=== PATIENT | male | born 1940 | race Caucasian/White ===

== ENCOUNTER 2019-10-16 22:08 | Inpatient (IN) | payer MEDICARE ==
[~2019-10-16] VITALS: Ht 185.4 cm; Wt 72.8 kg
[~2019-10-16 22:08] MED LIST: ASPIRIN325 MG PO; FISH OIL300 MG PO; ULTRAM 50MG50 MG PO
--- OUTSIDE RECORDS SUMMARY | 2019-10-16 22:10 | XMS REPORT ---
Author Author [facility] Address Unknown Phone Unavailable Care Team Providers Care Batter Depositor Name Role Phone Ashli BROOKS Unavailable Unavailable FCO VILLARREAL Unavailable Unavailable Problems This patient has no known problems. Allergies, Adverse Reactions, Alerts This patient has no known allergies or adverse reactions. Medications This patient has no known medications. Results Test Description Test Time Test Comments Text Results Atomic Results Result Comments CT HIP RIGHT WO 2019-08-13 12:24:00 [facility] [address] [place] [address] Patient Name: HARDEEP WRIGHT MR #: [id number] : 1940 Age/Sex: 78/M Req #: [id number] Adm Physician: Ordered by: TONYA BROOKS MD Report #: [id number] Location: CT Room/Bed: Procedure: [id number] CT/CT HIP RIGHT WO Exam Date: 08/13/19 Exam Time: 0940 REPORT STATUS: Signed EXAM: CT right hip without contrast INDICATION: Radiculopa thy. Right hip pain. Hip pain COMPARISON: August 10, 2019 TECHNIQUE: Right hip was scanned utilizing a multidetector helical scanner without administration of IV contrast. Coronal and sagittal reformations were obtained. Routine protocol was performed. IV CONTRAST: None ORAL CONTRAST: None COMPLICATIONS: None RADIATION DOSE: Total DLP: 222 mGy*cm Estimated effective dose: (DLP x 0.015 x size factor) mSv CTDIvol has been reviewed. It is below the limits set by the Radiation Protocol Committee (RPC). Dose modulation, iterative reconstruction, and/or weight based adjustment of the mA/kV was utilized to reduce the radiation dose to as low as reasonably achievable. FINDINGS: Healed right proximal femoral fracture deformity with intact right femoral gaetano and screw fixation hardware. The surgical hardware is intact without evidence of failure or loosening. No acute fracture, subluxation or avascular necrosis. Scattered degenerative change about the right hip and visualized pelvic osseous structures. No osseous erosion. Scattered vascular calcification. Mild diffuse muscle atrophy. Distended urinary bladder. Small nonspecific inguinal lymph nodes. No abnormal fluid collections. Impression: Healed right proximal femoral fracture deformity with intact right femoral gaetano and screw fixation hardware. The surgical hardware is intact without evidence of failure or loosening. No acute fracture, subluxation or avascular necrosis. Scattered degenerative nance ge about the right hip and visualized pelvic osseous structures. No osseous erosion. Signed by: Dr. Caroline Venegas M.D. on 08/13/2019 12:31 PM Dictated By: CAROLINE VENEGAS MD, MD [id number] Transcribed By: MACARIO on 08/13/19 1231 COPY TO: TONYA BROOKS MD CT LUMBAR SPINE WO 2019-08-13 11:38:00 [place] [address] Patient Name: HARDEEP WRIGHT MR #: [id number] : 1940 Age/Sex: 78/M Req #: [id number] Adm Physician: Ordered by: TONYA BROOKS MD Report #: [id number] Location: CT Room/Bed: Procedure: [id number] CT/CT LUMBAR SPINE WO Exam Date: 08/13/19 Exam Time: 0940 REPORT STATUS: Signed EXAMINATION: CT of the lumbar spine HISTORY: Low back p ain radiating to the right hip, radiculopathy COMPARISON: None available TECHNIQUE: Multidetector helical axial images were obtained without contrast from L1 to S1. The images were reconstructed using bone and soft tissue algorithms and were viewed in axial, sagittal, and coronal planes. Dose modulation, iterative reconstruction, and/or weight based adjustment of the mA/kV was utilized to reduce the radiation dose to as low as reasonably achievable. FINDINGS: Alignment: Normal alignment and lordosis. Vertebral bodies: Normal height and density. Paraspinal muscles: Atherosclerotic calcification of the abdominal aorta and iliac arteries. Mild atrophy of the paraspinal muscles. Intervertebral disks: L1- L2: Normal. L2-L3: Normal. L3-L4: Mild diffuse disc poles, ligamentum flavum thickening and facet arthrosis. Moderate spinal canal and mild foraminal stenoses. L4-L5: Asymmetric right disc bulge, ligamenta flava thickening and bilateral facet arthrosis. Severe canal stenosis. Moderate right and mild left foraminal stenoses. Small bone fragment adjacent to the posterior left facet joint may correspond to an osteophyte versus sequela from remote trauma. L5-S1: Minimal symmetric disc poles and mild facet arthrosis minimally on the right. No canal or foraminal stenoses. IMPRESSION: 1. No acute lumbar spine fractures or dislocations. 2. Moderate degenerative spinal canal and mild neural foraminal stenosis at L3-L4. 3. Severe degenerative spinal canal and moderate right foraminal stenosis at L4-L5. Attempts were made to informed about this findings as requested to the provided phone number at the time of this dictation on 08/13/2019 at 11:43 PM unsuccessfully, a message was left. Signed by: Dr. Piotr Mercedes M.D. on 08/13/2019 11:45 AM Dictated By: PIOTR MERCEDES MD [id number] Transcribed By: MACARIO on 08/13/19 1146 COPY TO: TONYA BROOKS MD HIP RIGHT 2-3 VW (+/- PELVIS) 2019-08-10 06:47:00 [facility] [place] [address] Patient Name: HARDEEP WRIGHT MR #: [id number] : 1940 Age/Sex: 78/M Req #: [id number] Adm Physician: Ordered by: FCO VILLARREAL DO Report #: [id number] Location: ER Room/Bed: Procedure: [id number] DX/HIP RIGHT 2-3 VW (+/- PELVIS) Exam Date: Exam Time: REPORT STATUS: Signed X-ray pelvis 1 view and right femur 2 views HISTORY: Pain. COMPARISON: None available. FINDINGS: Some of the osseous structures obscured by bowel content. Bones: Healed right proximal femoral fracture deformity in near-anatomic alignment with intact right femoral gaetano and screw fixation hardware, no evidence of hardware loosening or failure. Exuberant callus formation about the healed fracture. Joints: No dislocations. Degenerative changes in the spine hips and pelvis. Soft tissues: Vascular calcifications. IMPRESSION: No acute radiographic osseous abnormality. Degenerative changes in the spine hips and pelvis. Healed right proximal femoral fracture deformity with intact right femoral gaetano and screw fixation hardware, no evidence of hardware loosening or failure. Signed by: Danielito Farr DO on 08/10/2019 6:50 AM Dictated By: DANIELITO FARR DO 9 Transcribed By: MACARIO on 08/10/19649 COPY TO: FCO SANTO DO
[2019-10-16] MEDS ORDERED: ASPIRIN 81 MG CHEW TAB PO ONE (22:30)
[2019-10-16 23:08] LABS: BASOPHILS % 0.1 % (0.0-1.0); EOSINOPHILS # (AUTO) 0.1 (0.0-0.4); EOSINOPHILS % 0.6 % (0.0-6.0); LYMPHOCYTES # (AUTO) 2.4 (1.0-3.2); LYMPHOCYTES % 17.1 % (18.0-39.1); MEAN CORPUSCULAR HEMOGLOBIN 28.3 pg (28-32); MEAN CORPUSCULAR HGB CONC 30.7 g/dL (31-35); MEAN CORPUSCULAR VOLUME 92.1 fL (81-99); MONOCYTES # (AUTO) 0.8 (0.2-0.8); MONOCYTES % 5.6 % (4.4-11.3); NEUTROPHILS # (AUTO) 10.6 (2.1-6.9); NEUTROPHILS % 75.8 % (38.7-80.0); PLATELET COUNT 219 x10e3/uL (140-360); RED BLOOD COUNT 1.52 x10e6/uL (4.3-5.7); RED CELL DISTRIBUTION WIDTH 15.8 % (11.7-14.4)
[2019-10-16 23:10] LABS: INR 1.24; PARTIAL THROMBOPLASTIN TIME 23.5 seconds (23.8-35.5); PROTHROMBIN TIME 16.4 seconds (11.9-14.5)
--- NOTE | 2019-10-16 23:18 | NUR ---
ER MD AND PRIMARY NURSE NOTIFIED AND AWARE OF CRITICAL LAB VALUES, HGB 4.3 AND HCT 14.0.
[2019-10-16 23:19] LABS: ALBUMIN/GLOBULIN RATIO 1.3 (0.8-2.0); ANION GAP 10.8 mmol/L (8-16); CALCIUM 7.1 mg/dL (8.4-10.2); CREATININE, SERUM 1.22 mg/dL (0.72-1.25); HEMOGLOBIN 4.3 g/dL (14.0-18.0); POTASSIUM 4.8 mmol/L (3.5-5.1)
[2019-10-16 23:28] LABS: CREATINE KINASE MB 1.3 ng/mL (0-5.0)
[2019-10-16] MEDS ORDERED: SODIUM CHLORIDE 0.9% 250ML 250 ML IV ONE (23:30)
[2019-10-16 23:44] LABS: BACTERIA,URINE FEW /HPF; BILIRUBIN,URINE NEGATIVE (NEGATIVE); CLARITY,URINE CLEAR (CLEAR); COLOR,URINE YELLOW (YELLOW); KETONES,URINE NEGATIVE (NEGATIVE); LEUKOCYTE ESTERASE ,URINE NEGATIVE (NEGATIVE); NITRITE,URINE NEGATIVE (NEGATIVE); PROTEIN,URINE DIPSTICK NEGATIVE (NEGATIVE); URINE UROBILINOGEN 0.2 mg/dL (0.2 - 1); WBC,URINE (MAN) 0-5 /HPF (0-5)
[2019-10-16 23:45] LABS: EPITHELIAL CELLS,URINE RARE /LPF
[2019-10-17] VITALS (15 sets, daily range): BP systolic 67–156; BP diastolic 36–71
--- NOTE | 2019-10-17 00:07 | Diagnostic Imaging Report ---
EXAMINATION: Head CT without contrast. HISTORY:Altered mental status. COMPARISON:CT brain from 09/20/2016 and report of MRI brain from 09/20/2016. TECHNIQUE: Multidetector axial images were obtained from the foramen magnum to the vertex without contrast. The images were reconstructed using brain and bone algorithms. Thin section brain images were reformatted into coronal and sagittal planes. Dose modulation, iterative reconstruction, and/or weight based adjustment of the mA/kV was utilized to reduce the radiation dose to as low as reasonably achievable. Intravenous contrast: None IMAGE QUALITY: Suboptimal evaluation due to motion-related streak artifacts. FINDINGS: Skull/scalp: No lytic or blastic. lesions. No surgical changes. Parenchyma: Suboptimal evaluation due to motion artifacts, despite the limitation no gross acute hemorrhage, mass or acute major vascular territorial infarct. Nonspecific few, scattered supratentorial white matter hypodensity are likely related to small vessel ischemic changes. Chronic lacunar infarct in left collazo radiata. Arteries: No density suggestive of thrombosis. Mild atherosclerotic calcification in bilateral carotid siphon. Dural sinuses: No abnormal density suggestive of thrombosis. Ventricles: Marked ventriculomegaly disproportionate to the amount of cerebral volume loss, possibly represents normal pressure or chronic communicating type hydrocephalus. Extra-axial spaces: No abnormal density. Brain volume: Mild generalized cerebral, severe cerebellar and midbrain volume loss. Craniocervical junction: No mass, Chiari malformation, or basilar invagination. Sella: No mass. Paranasal/mastoid sinuses: Imaged portions unremarkable. IMPRESSION: Suboptimal evaluation due to motion artifacts, despite the limitation no gross acute intracranial abnormality. No significant change since CT head from 09/20/2016. Chronic findings: 1. Mild supratentorial white matter microvascular ischemic changes. 2. Mild generalized cerebral volume loss. Severe cerebellar and midbrain volume loss and can be seen in the setting of progressive supranuclear palsy. 3. Ventriculomegaly disproportionate to the amount of cerebral volume loss may represent normal pressure or chronic communicating type hydrocephalus. Signed by: Dr. Petra Sneed M.D. on 10/17/2019 12:03 AM
--- NOTE | 2019-10-17 00:11 | Diagnostic Imaging Report ---
EXAMINATION: CHEST SINGLE (PORTABLE) INDICATION: Altered mental status COMPARISON: Systems Integration Advisor view from CT on 08/13/2019 FINDINGS: TUBES and LINES: Left chest wall cardiac device with leads in the right atrium and right ventricle. LUNGS: Hyperinflated lungs. A 1.1 cm soft tissue dense nodule in the right lower lobe. PLEURA: No pleural effusion or pneumothorax. HEART AND MEDIASTINUM: The cardiomediastinal silhouette is within normal size limits. There are atherosclerotic calcifications within the aorta. BONES AND SOFT TISSUES: Degenerative changes in the spine and shoulders. Soft tissues are unremarkable. UPPER ABDOMEN: No free air under the diaphragm. IMPRESSION: Hyperinflated lungs can be seen with obstructive pulmonary disease. An indeterminate 1.1 cm nodule in the right lower lung can be further characterized with nonemergent chest CT. Signed by: Danielito Farr DO on 10/17/2019 12:07 AM
[2019-10-17] MEDS ORDERED: SODIUM CHLORIDE 0.9% 1000ML 1,000 ML IV ONE (01:15)
[2019-10-17] MEDS ORDERED: SODIUM CHLORIDE 0.9% 250ML 250 ML ONE ×2 (02:58→10:36)
--- NOTE | 2019-10-17 07:26 | History and Physical ---
HISTORY PRESENT ILLNESS: A 78-year-old gentleman with a history of hypertension, history of hyperlipidemia, history of pacemaker placement, history of PE, history of low back pain, was in usual state of health until about 2 days prior to admission. The patient's family did not hear from him and therefore send out discharge for him and looked for him. The patient was found at home doing well. He did have some symptoms of weakness and lethargy, which increased in intensity. The patient was brought to the emergency room yesterday and in the emergency room, the patient was noted to have seizure-like activities and also his hemoglobin was noted to be very low at 4.1. Transfusion ordered. The patient in the ICU, on telemetry monitoring. PAST MEDICAL HISTORY: History of femur surgery, history of tonsillectomy, history of esophageal surgery, history of nasal surgery. PAST SURGICAL HISTORY: The patient is additional history includes pacemaker placement in 2013. The patient also had cataract surgeries and gallbladder removal. ALLERGIES: NO DRUG ALLERGIES. MEDICATIONS: We have reported are nifedipine and lisinopril 20 mg at the last admission. SOCIAL HISTORY: The patient has a history of smoking in the past, which he stopped. The patient also has a history of alcohol abuse in the past. Currently, non alcoholic. FAMILY HISTORY: The patient has CVA, hypertension, and diabetes in the family. REVIEW OF SYSTEMS: It is hard to get a history from him, but on repeated questioning, no chest pain noted. Positive for some shortness of breath and also for extreme weakness and tiredness. PHYSICAL EXAMINATION: VITAL SIGNS: Temperature is 97.6, pulse of 92, blood pressure is 108/42. On arrival was 95/36, pulse oximetry of 99%, O2 at 2 L. HEENT: Normocephalic, atraumatic. The patient has pallor. CVS: S1 and S2. Tachy. ABDOMEN: Nontender and nondistended. EXTREMITIES: Decreased pulses in the lower extremity. Pedal pulses are very feeble. Femoral pulses positive. The patient's back with tenderness in the L4-L5 area. LUNGS: Decreased air entry. LABORATORY VALUES: [place] [address], hemoglobin 4.3, hematocrit 14.0, no left shift present. The patient's chemistry shows; sodium 137, potassium 4.8, BUN of 67, creatinine of 1.22, calcium of 7.1, total bilirubin 0.1. Coags are normal. INR is 1.24. Urine normal. Stool occult was positive. IMAGING STUDIES: Brain CT shows mild supratentorial white matter microvascular changes, mild generalized volume loss and ventriculomegaly disproportionate to the amount of cerebral volume loss may represent normal-pressure hydrocephalus. Chest x-ray shows hyperinflated lungs with obstructive pulmonary disease and also an indeterminate 1.1 cm nodule in the right lung can be further characterized for CT. ASSESSMENT: 1. Mr. Sylvain Dumas with symptomatic blood loss anemia. 2. Seizure-like activity. 3. History of CVA in the past. 4. History of pacemaker placement. 5. History of hypertension. 6. Chronic obstructive pulmonary disease. 7. History of alcohol abuse in the past. 8. Seizure-like activity. PLAN: Four units have been crossed and typed. We will blood and transfuse the patient. Continue monitoring his H and H. A consult with Dr. Jd Kendall has been done. He will need an EGD and endoscopy given the extent of anemia. Iron levels will be ordered. A drug screen panel will also be ordered. A consult with Dr. Lugo will be ordered and also MRI head cannot be done because of his pacemaker placement. Further recommendation per clinical course. We will continue to monitor the patient. 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 We will address this at a later date and also a nodule in the lung, which will be addressed at a later date. Further recommendation per clinical course. We will continue to monitor the patient. The patient will be kept in ICU until the H and H is stabilized and the patient feels better. MD RASHMI Ko/MODL /[id number]
[2019-10-17 07:28] LABS: AMPHETAMINES SCREEN,URINE NEGATIVE (NEGATIVE); BENZODIAZEPINES SCREEN,URINE POSITIVE (NEGATIVE); PHENCYCLIDINE SCREEN,URINE NEGATIVE (NEGATIVE)
--- NOTE | 2019-10-17 09:06 | Consultation ---
DATE OF CONSULTATION: Pulmonary Critical Care Consultation CHIEF COMPLAINT: Acute on chronic blood loss. HISTORY OF PRESENT ILLNESS: The patient is a 78-year-old man. He has a history of a pulmonary embolism as well as some prior cardiac disease. He did have a pacemaker placed in the past. He has had increased weakness and malaise over the past several days. He has not noticed any chest pain. He does not have fevers or difficulty breathing. When he arrived in the emergency department, he was found to have a hemoglobin of 4.1. He denies any abdominal pain. He denies any hematochezia or hematemesis. He denies any hematuria or any bleeding of any kind. PAST SURGICAL HISTORY: 1. Status post pacemaker. 2. Status post cholecystectomy. 3. Status post femur surgery. 4. History of esophageal surgery. PAST MEDICAL HISTORY: 1. 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 2. Hypertension. 3. Diabetes. 4. Prior neurological problems including possible cerebellar atrophy or normal-pressure hydrocephalus. 5. History of prior lacunar infarcts. SOCIAL HISTORY: The patient has a strong support from his family. He is not an active smoker, although he did smoke in the past. He does not use alcohol. FAMILY HISTORY: Family history is significant for hypertension, cerebrovascular disease, and diabetes. ALLERGIES: NO KNOWN DRUG ALLERGIES. REVIEW OF SYSTEMS: The patient does have some intermittent confusion. He has no fevers. He has no neck pain. He is not complaining of any chest pain. He does not complain of dyspnea or cough. He has no abdominal pain. He denies hematemesis or hematochezia. He does not complain of any focal neurological problems. PHYSICAL EXAMINATION: VITAL SIGNS: The patient is afebrile. The blood pressure is 123/60 and the saturation is 99% on 2 L. The pulse is 84. HEENT: Shows no facial swelling or erythema. LYMPHATIC: Shows no submandibular, cervical, or supraclavicular adenopathy. CARDIAC: Reveals a regular rate and rhythm with normal S1 and S2. LUNGS: Auscultation of lungs reveals clear breath sounds bilaterally. ABDOMEN: Soft and nontender. There is no rebound or guarding. EXTREMITIES: Show no leg edema or calf tenderness. There is no cyanosis or clubbing. SKIN: Shows no rashes. NEUROLOGIC: Difficult because the patient's incomplete effort, but no obvious focal abnormalities are apparent. LABORATORY DATA: White blood cell count is 14 and hemoglobin is 4.3. The platelet count is 219. BUN to creatinine ratio is 67 to 1.22 and the carbon dioxide is 20. Albumin is 2.0. RADIOGRAPHIC DATA: CT scan of the brain shows mild generalized cerebral volume loss with severe cerebellar and midbrain volume loss. He also has ventriculomegaly. Chest x-ray shows hyperinflated lungs as well as a 1.1 nodule in the right lower lobe of unclear etiology. IMPRESSION: 1. Acute on chronic blood loss of unclear etiology. 2. Solitary pulmonary nodule. 3. Degenerative neurological disease of unclear etiology. 4. Acute kidney injury. 5. Leukocytosis. 6. Hypoalbuminemia. 7. Moderate protein-calorie malnutrition. PLAN: 1. The patient is receiving packed red blood cells. 2. We are awaiting GI evaluation. 3. The patient has been pancultured. 4. Neurological evaluation for possible degenerative neurological disease. 5. CT scan of the chest to evaluate the pulmonary nodule when stable. Scottie Branham MD [facility]/MODL /[id number]
[2019-10-17] MEDS ORDERED: ZIPRASIDONE 20 MG VIAL IM ONE ×2 (09:30→14:30)
[2019-10-17 15:29] LABS: HEMOGLOBIN 6.4 g/dL (14.0-18.0)
[2019-10-17 15:30] LABS: HEMATOCRIT 19.8 % (38.2-49.6)
[2019-10-17] MEDS ORDERED: SODIUM CHLORIDE 0.9% 1000ML 1,000 ML ONE ×2 (15:57→19:21)
--- NOTE | 2019-10-17 16:00 | NUR ---
Dr Orlando in with patient. Ordered 1 liter bolus NS, done. Evaluated echo while in progress.
[2019-10-17 16:14] LABS: ALANINE AMINOTRANSFERASE 28 IU/L (0-55); ALBUMIN 1.8 g/dL (3.5-5.0); ALBUMIN/GLOBULIN RATIO 1.4 (0.8-2.0); ALKALINE PHOSPHATASE 40 IU/L (40-150); ANION GAP 8.9 mmol/L (8-16); BLOOD UREA NITROGEN 76 mg/dL (7-26); BUN/CREATININE RATIO 79 (6-25); CARBON DIOXIDE 19 mmol/L (22-29); CHLORIDE 116 mmol/L (98-107); CREATININE, SERUM 0.96 mg/dL (0.72-1.25); EST GLOMERULAR FILTRATION RATE > 60 ML/MIN (60-); GLUCOSE 153 mg/dL (74-118); SODIUM 138 mmol/L (136-145)
[2019-10-17 16:23] LABS: POTASSIUM 5.9 mmol/L (3.5-5.1)
[2019-10-17] MEDS ORDERED: HYDROCORTISONE SOD SUCCINATE 100 MG VIAL IV ONE (16:30)
[2019-10-17] MEDS ORDERED: VANCOMYCIN 1GM/NS 250 ML 250 ML IV ONE (16:30)
--- NOTE | 2019-10-17 17:00 | NUR ---
Have spoke with Dr Lugo who states he is not taking call for patients this week. Order received to consult Dr Jimenez. Spoke with Dr Jimenez who states he is not top inventory control executive for [employer]. Have notified Dr Escamilla and Dr Branham that no current neurology is available for patient.
[2019-10-17] MEDS ORDERED: SODIUM CHLORIDE 0.9% 250ML 250 ML IV ONE ×3 (17:30→20:00)
[2019-10-17] MEDS ORDERED: IOPAMIDOL 370 MG/ML 200 ML INFUS..BTL INJ ONE (17:42)
[2019-10-17] MEDS ORDERED: SODIUM CHLORIDE 0.9% 50ML 50 ML ONE (17:42)
--- NOTE | 2019-10-17 17:58 | Diagnostic Imaging Report ---
EXAM: CT Abdomen and Pelvis WITH contrast INDICATION: ^Anemia blood loss COMPARISON: None. TECHNIQUE: Abdomen and pelvis were scanned utilizing a multidetector helical scanner from the lung base to the pubic symphysis after administration of IV contrast. Coronal and sagittal reformations were obtained. Routine protocol was performed. Scan was performed when during portal venous phase. IV CONTRAST: 100 mL of Isovue-370 ORAL CONTRAST: None RADIATION DOSE: Total DLP: 362.7 mGy*cm Estimated effective dose: (DLP x 0.015 x size factor) mSv COMPLICATIONS: None FINDINGS: LINES and TUBES: Pacemaker leads in the right atrial appendage and right ventricle. Trace bilateral pleural effusions with minimal adjacent atelectasis. Small hiatal hernia. There are surgical clips at the gastroesophageal junction and proximal greater curvature of the stomach. LOWER THORAX: Unremarkable HEPATOBILIARY: No focal hepatic lesions. No biliary ductal dilation. GALLBLADDER: Cholecystectomy. SPLEEN: No splenomegaly. PANCREAS: No focal masses or ductal dilatation. ADRENALS: No adrenal nodules KIDNEYS/URETERS: Kidneys enhance symmetrically. No hydronephrosis. No cystic or solid mass lesions. No stones. GI TRACT: Circumferential wall thickening of the first portion of the duodenum on series 2, image 34. No adjacent fluid collections of free air. Large amount of retained stool throughout the colon. Mild circumferential wall thickening of the transverse colon. No bowel dilatation or obstruction. The small bowel with decompressed. Appendix is normal. PELVIC ORGANS/BLADDER: Unremarkable. LYMPH NODES: No lymphadenopathy. VESSELS: Extensive mainly noncalcified atherosclerotic changes in the abdominal aorta, which is worse in the distal infrarenal segment resulting in 50% of luminal narrowing with minimal luminal diameter of 0.9 cm on series 2, image 46. Moderate atherosclerotic calcifications throughout the pelvic arteries resulted in mild stenosis throughout the right common iliac artery and moderate stenosis of the distal left common iliac artery. PERITONEUM / RETROPERITONEUM: No free air or fluid. BONES: Unremarkable. SOFT TISSUES: Small right inguinal hernia containing soft tissue density which may reflect a fluid. IMPRESSION: Circumferential wall thickening of the transverse colon as well as the first portion of the duodenum may reflect active inflammation and represent the source of this patient bleeding. No free air or free fluid in the abdomen or pelvis to suggest perforation. Small hiatal hernia with associated postsurgical changes at the gastroesophageal junction. Extensive atherosclerotic changes of the abdominal aorta resulting in 50% narrowing at the distal infrarenal segment. Signed by: Dr. Tiffany Romo M.D. on 10/17/2019 5:55 PM
[2019-10-17 18:32] LABS: BASOPHILS % 0.1 % (0.0-1.0); EOSINOPHILS % 0.1 % (0.0-6.0); HEMATOCRIT 15.7 % (38.2-49.6); LYMPHOCYTES # (AUTO) 1.6 (1.0-3.2); LYMPHOCYTES % 8.8 % (18.0-39.1); MEAN CORPUSCULAR HEMOGLOBIN 29.2 pg (28-32); MEAN CORPUSCULAR HGB CONC 31.8 g/dL (31-35); MEAN CORPUSCULAR VOLUME 91.8 fL (81-99); MONOCYTES # (AUTO) 1.3 (0.2-0.8); NEUTROPHILS # (AUTO) 15.3 (2.1-6.9); NEUTROPHILS % 82.9 % (38.7-80.0); PLATELET COUNT 170 x10e3/uL (140-360); RED BLOOD COUNT 1.71 x10e6/uL (4.3-5.7); RED CELL DISTRIBUTION WIDTH 15.8 % (11.7-14.4)
--- NOTE | 2019-10-17 18:45 | NUR ---
Dr Branham notified of H/H 5.0/ 15.7. Reviewed other labs and CT results. Orders in progress.
[2019-10-17 18:49] LABS: INR 1.55; PARTIAL THROMBOPLASTIN TIME 24.4 seconds (23.8-35.5); PROTHROMBIN TIME 19.6 seconds (11.9-14.5)
--- NOTE | 2019-10-17 18:51 | NUR ---
Code status change orders. 2nd nurse Michelle ACEVEDO and this nurse were notified by digna Dumas of modified code status. Ok with bipap and meds only. Addendum: 10/17/19 at 2113 by Lucero Ireland RN Dr Andi york's request for modified code status.
[2019-10-17] MEDS: NOREPINEPHRINE 8 MG/D5W 250 ML 250 ML IV PRN (19:00)
[2019-10-17] MEDS ORDERED: NOREPINEPHRINE 8 MG/D5W 250 ML 250 ML ONE (19:42)
--- NOTE | 2019-10-17 19:56 | NUR ---
Dr Cole in with pt. H/H 5.0/15.7. Ordered give one liter NS bolus, start levophed, screen for 2 more units. After the next 2 units prbc are given check a H/H, call Dr Cole with results.
--- NOTE | 2019-10-17 20:08 | NUR ---
Dr Pedraza notified of consult.
[2019-10-17] MEDS ORDERED: LISINOPRIL10 MG PO (20:17)
[2019-10-17] MEDS ORDERED: HYDRALAZINE HCL25 MG PO (20:17)
[2019-10-17] MEDS ORDERED: PREDNISONE20 MG PO (20:17)
[2019-10-17] MEDS ORDERED: AMLODIPINE BESYL5 MG PO (20:17)
[2019-10-17] MEDS ORDERED: ATORVASTATIN CA20 MG PO (20:17)
[2019-10-17] MEDS ORDERED: BACTRIM DS TAB1 EACH PO (20:17)
[2019-10-17] MEDS ORDERED: ELIQUIS5 M1 PO (20:17)
--- NOTE | 2019-10-17 21:18 | Consultation ---
DATE OF CONSULTATION: 10/17/2019 Cardiology Consultation CONSULTING PHYSICIAN: Dr. Sedrick Cole, Interventional Cardiology. REASON FOR CONSULTATION: Shock. HISTORY OF PRESENT ILLNESS: Mr. Dumas is a pleasant 78-year-old man well known to me with a history of AV block, status post dual-chamber pacemaker, hypertension, diabetes, ischemic cerebrovascular disease with prior lacunar infarcts and neurologic problems related to cerebellar atrophy with normal pressure hydrocephalus. He normally uses a walker. Sylvain has a history of sick sinus syndrome and paroxysmal atrial fibrillation. He has been on chronic anticoagulation with Eliquis 5 mg every 12 hours. He presents with weakness and malaise over the last several days. He denies any chest pain, fevers, cough, or shortness of breath. In the ER, he was found to have a hemoglobin of 4.1. He denies any gross bleeding. He was admitted to the intensive care unit for further workup and management. He has so far received 3 units of packed red blood cells with a repeat hemoglobin from 4.3 to 5 following this. Remarkable findings include leukocytosis. INR 1.5, PT 19.6, and a PTT of 24. Potassium from 4.8 to 5.9, creatinine 0.9. The 5.9 reportedly without hemolysis and an albumin of 1.8. His stool occult blood is positive. In the ER at bedside, he is currently hypotensive in the 60s. Levophed and volume resuscitation with pressure back saline was performed, 500 saline was administered via bolus with improvement in systolic blood pressure to systolic 100 and symptomatic patient improvement. Additional PRBC transfusion is planned. Hematology is being consulted too. REVIEW OF SYSTEMS: A 12-system review negative except for as noted above. ALLERGIES: NO KNOWN DRUG ALLERGIES. PAST MEDICAL HISTORY: As per HPI. PAST SURGICAL HISTORY: Cholecystectomy, cataract surgery, and pacemaker implant. SOCIAL HISTORY: Former smoker. No alcohol or drugs. FAMILY HISTORY: Hypertension, CVA, and diabetes. PHYSICAL EXAMINATION: VITAL SIGNS: Temperature 98 degrees, heart rate 80, respiratory rate 20, blood pressure 114/37, and O2 saturation 100% on 2 L/minute nasal cannula. On telemetry, paced rhythm. GENERAL: Seems acutely ill-appearing, pale, weak, and frail. The patient is in reverse Trendelenburg currently. NECK: JVD is noted to be distended, however, given position, this is expected. No carotid bruits. CHEST: Clear to auscultation. CARDIOVASCULAR: Regular rate and rhythm. Normal S1 and S2. Systolic ejection murmur. Pacemaker pocket site looks okay. ABDOMEN: Soft. Bowel sounds positive. Nontender. No rebound or guarding. EXTREMITIES: No edema. Warm extremities. CARDIOVASCULAR MEDICATIONS: Reviewed. Levophed initiated. The patient is status post vancomycin and cefepime. Blood cultures ordered and pending. ASSESSMENT: 1. Acute anemia, suspect related to blood loss. Positive fecal occult blood test, gastrointestinal bleed. 2. Shock hypovolemic/hemorrhagic. 3. History of pulmonary nodule. 4. Sick sinus syndrome, paroxysmal atrial fibrillation, status post pacemaker implant with history of AV block. 5. History of hypertension. 6. History of cerebrovascular disease. 7. Chronic obstructive pulmonary disease. 8. Former history of alcohol use. 9. Normal pressure hydrocephalus. History of cerebellar dysfunction. RECOMMEND: 1. Continue fluid resuscitation with crystalloids, PRBC transfusions. Repeat H and H following one additional PRBC transfusion, which is being set up currently. 2. Continue Levophed for now and wean to maintain map 65 to 75. 3. Appreciate Hematology input. 4. The patient has guarded prognosis in critical state. Continue to hold anticoagulation for now. The patient was previously on Eliquis. Sedrick Raines MD [facility]/MODL /[id number]
[2019-10-17] MEDS ORDERED: LORAZEPAM INJ 2 MG/ML VIAL ONE (21:54)
[2019-10-17] MEDS: SODIUM CHLORIDE 0.9% 1000ML 1,000 ML IV SCH ×4 (22:00→22:02)
[2019-10-17] MEDS ORDERED: LORAZEPAM INJ 2 MG/ML VIAL IV PRN (22:00)
[2019-10-17] MEDS: CEFEPIME 1GM/NS 0.9% 50 ML 50 ML IV SCH (22:32)
[2019-10-17 23:05] LABS: HEMATOCRIT 30.5 % (38.2-49.6)
--- NOTE | 2019-10-17 23:27 | Diagnostic Imaging Report ---
EXAMINATION: CHEST XRAY LINE PLACEMENT INDICATION: PICC placement, verify position COMPARISON: Chest x-ray 10/16/2019, abdominal CT 10/17/2019 FINDINGS: TUBES and LINES: New right upper extremity PICC, tip terminates in the cavoatrial junction. Left chest wall cardiac device with leads in the right atrium and right ventricle. LUNGS: Normal lung volumes. No soft tissue dense nodule identified in the right lower quadrant, therefore the right lower lobe soft tissue dense nodule seen on chest x-ray 10/16/2019 was likely a nipple shadow. Elevated left hemidiaphragm. No consolidations. PLEURA: No pleural effusion or pneumothorax. HEART AND MEDIASTINUM: The cardiomediastinal silhouette is unremarkable. BONES AND SOFT TISSUES: No acute osseous lesion. Soft tissues are unremarkable. UPPER ABDOMEN: No free air under the diaphragm. IMPRESSION: New right upper extremity PICC, tip terminates in the cavoatrial junction. Signed by: Danielito Farr DO on 10/17/2019 11:23 PM
--- NOTE | 2019-10-17 23:33 | NUR ---
Dr. Pedraza and Dr. Cole notified of pt's repeat H&H. Dr. Pedraza ordered to repeat H&H to ensure accurate results, but to hold the next 2 units of blood unless repeat H&H comes back low again. Also said to notify him if repeat came back lower. Dr. Cole agrees with the plan.
--- NOTE | 2019-10-17 23:49 | NUR ---
PICC ok to use per CXR
[2019-10-18] VITALS (16 sets, daily range): BP systolic 95–125; BP diastolic 40–83
[2019-10-18 00:04] LABS: HEMATOCRIT 30.2 % (38.2-49.6)
[2019-10-18] MEDS: FUROSEMIDE INJ 10 MG/ML 2 ML VIAL IV PRN (01:29)
[2019-10-18] MEDS: SODIUM CHLORIDE 0.9% 1000ML 1,000 ML IV SCH (04:52)
[2019-10-18] MEDS ORDERED: PANTOPRAZOLE 40 MG 10ML VIAL IV ONE (06:00)
[2019-10-18] MEDS: CEFEPIME 1GM/NS 0.9% 50 ML 50 ML IV SCH ×3 (06:03→21:30)
[2019-10-18 06:36] LABS: HEMATOCRIT 23.6 % (38.2-49.6); HEMOGLOBIN 8.2 g/dL (14.0-18.0)
[2019-10-18] MEDS: NOREPINEPHRINE 8 MG/D5W 250 ML 250 ML IV PRN (06:41)
[2019-10-18 07:01] LABS: INR 1.4; PROTHROMBIN TIME 18.1 seconds (11.9-14.5)
[2019-10-18 07:10] LABS: ALBUMIN 1.9 g/dL (3.5-5.0); ALBUMIN/GLOBULIN RATIO 1.5 (0.8-2.0); ANION GAP 9.8 mmol/L (8-16); CALCIUM 7.1 mg/dL (8.4-10.2); CREATININE, SERUM 1.61 mg/dL (0.72-1.25); POTASSIUM 5.8 mmol/L (3.5-5.1)
[2019-10-18 07:13] LABS: BASOPHILS # (AUTO) 0.1 (0.0-0.1); BASOPHILS % 0.2 % (0.0-1.0); HEMOGLOBIN 8.3 g/dL (14.0-18.0); LYMPHOCYTES % 6.7 % (18.0-39.1); MEAN CORPUSCULAR HEMOGLOBIN 28.7 pg (28-32); MEAN CORPUSCULAR HGB CONC 34.6 g/dL (31-35); MONOCYTES # (AUTO) 2.7 (0.2-0.8); NEUTROPHILS # (AUTO) 24.9 (2.1-6.9); NEUTROPHILS % 82.5 % (38.7-80.0); PLATELET COUNT 154 x10e3/uL (140-360); RED BLOOD COUNT 2.89 x10e6/uL (4.3-5.7); RED CELL DISTRIBUTION WIDTH 15.9 % (11.7-14.4)
--- NOTE | 2019-10-18 08:29 | Progress Note ---
DATE: SUBJECTIVE: The patient is a 78-year-old gentleman, who came in with acute mental status changes. The patient's family was approached and the patient has been converted to not a full DNR, but partial DNR. Code status noted. The patient is currently still confused and groans and answers in 1 word or sentence. No chest pain as noted by the patient. Positive for some shortness of breath on evaluation. No nausea. No vomiting. The patient has been in and out of mentation as per nursing staff. OBJECTIVE: VITAL SIGNS: Temperature is 97.2, pulse of 108, respirations of 26, blood pressure is 108/44, on 2 L of nasal cannula. HEENT: Normocephalic and atraumatic. The patient is cachectic. CVS: S1 and S2 are normal. Regular rate and tachycardic slightly. ABDOMEN: Nontender, nondistended. EXTREMITIES: No clubbing. No cyanosis. Decreased pulses. LABORATORY DATA: H and H 10.0 and 30.2. Chemistries are pending today, but yesterday's potassium is 5.9, BUN of 76, creatinine of 0.96, CO2 is 19. Cortisol levels are pending and CMP levels are pending. The patient has his transfusions, H and H are up. IMAGING STUDIES: PICC line was placed in. ASSESSMENT: Mr. Sylvain Dumas with: 1. Acute blood loss anemia. Continue monitoring his H and H. The patient is maintaining his hematocrit at this time. We will continue monitoring the patient. 2. Shock, hypovolemic. Continue on Levophed. The patient has been down titrated for blood pressures. 3. Sick sinus syndrome, history of paroxysmal atrial fibrillation with pacemaker placement. We will continue monitoring him. Currently, the patient has a pacemaker in and has been off his anticoagulation. 4. History of chronic obstructive pulmonary disease. Continue monitoring his CO2 levels, at this time stable. 5. History of chronic alcohol use. Check B12 and thiamine levels. 6. Normal pressure hydrocephalus. Continue monitoring it. We will repeat CT scans later to evaluate for shunt if needed, but considering the patient's DNR status. We will monitor him carefully. 7. Leukocytosis, pending CBC today. We will continue to monitor the patient and also urine drug screen showed positive benzodiazepines. Further recommendation per clinical course. We will continue to monitor the patient. We will keep in ICU. 8. Seizure. A consult with Neurology has been done and CT so far has been negative. We will need an EEG. MD RASHMI Ko/SAGE /[id number]
[2019-10-18] MEDS ORDERED: PANTOPRAZOLE 40 MG 10ML VIAL IV SCH (09:00)
[2019-10-18] MEDS ORDERED: SOD POLYSTYRENE SULFONATE SUSP 15 GM/60 ML BTL PO ONE (10:00)
[2019-10-18] MEDS: SODIUM CHLORIDE 0.45% 1,000 ML IV SCH ×2 (10:10→21:30)
[2019-10-18] MEDS: PANTOPRAZOLE 40 MG 10ML VIAL IV SCH ×2 (10:10→18:04)
[2019-10-18 10:19] LABS: LYMPHOCYTES % (MANUAL) 5 % (19-48); MONOCYTES % (MANUAL) 7 % (3.4-9.0); NEUTROPHILS % (MANUAL) 88 % (40-74)
--- NOTE | 2019-10-18 10:20 | Progress Note ---
DATE: Pulmonary Critical Care Progress Note SUBJECTIVE: Yesterday, the patient had problems with recurrent hypotension. He received 4 units of packed red blood cells total. He was started on Levophed at 5 mcg after receiving a PICC line. He went for emergent CT scan that showed no retroperitoneal hemorrhage. He had some inflammation in his transverse colon of unclear etiology. He also received antibiotics and was pancultured. He received additional fluids. This morning his white blood cell count is increased to 30. PHYSICAL EXAMINATION: VITAL SIGNS: The blood pressure is now 105/50 on 5 mcg of Levophed. The pulse is 104 and the saturation is 100% on 2 L. HEENT: Shows no facial swelling or erythema. LYMPHATIC: Shows no submandibular, cervical, or supraclavicular adenopathy. CARDIAC: Reveals a regular rate and rhythm with normal S1 and S2. LUNGS: Auscultation of lungs reveals rhonchorous breath sounds bilaterally. There is no wheezing. ABDOMEN: Soft and nontender. There is no rebound or guarding. There is a sacral wound that is bandaged. There is no leg edema. LABORATORY DATA: White blood cell count is 30.2 and the hemoglobin is 8.3. The platelet count is 154. BUN to creatinine ratio is 97-1.61 and the potassium is 5.8. The chloride is 120 with a CO2 of 17. Urinalysis shows no evidence of urinary tract infection. RADIOGRAPHIC DATA: CT scan of the abdomen and pelvis shows circumferential wall thickening of the transverse colon and first part of the duodenum. This may represent active inflammation. There are no other acute abnormalities. Chest x-ray shows a PICC line in good position. There are no acute infiltrates. IMPRESSION: 1. Anemia secondary to acute and chronic blood loss of unclear cause. 2. Hypovolemic and hemorrhagic shock. 3. Pulmonary nodule. 4. History of sick sinus syndrome and paroxysmal atrial fibrillation as required a pacemaker in the past. 5. History of a degenerative neurological disease. 6. Leukocytosis and sepsis of unclear etiology, present on admission. PLAN: 1. Continue broad-spectrum antibiotics. Await culture results. 2. ID consultation. 3. Change IV fluids to half-normal saline to prevent any hyperchloremic acidosis and help to correct the worsening creatinine. 4. Infectious Disease consultation. 5. Continue current cardiac regimen. 6. Discuss possibility of reversing Eliquis with concentrated protein C with Hematology. 7. Ativan and/or Geodon as needed for agitation. 8. Case discussed with nursing staff, Dr. Escamilla. 9. Greater than 35 minutes in direct critical care time. MD DAVID Rosa/SAGE /[id number]
--- NOTE | 2019-10-18 12:00 | NUR ---
Unsuccessful attempt to place NGT. This nurse along with Dr Branham were unsuccessful at placing an ngt. The order for kayexalate is not given due to unable to place the ngt, pt is having swallowing difficulty, and remains npo. Dr Branham has ordered to repeat potassium labs which is currently trending down and do not give the kayexalate currently.
[2019-10-18 13:59] LABS: HEMATOCRIT 22.8 % (38.2-49.6); HEMOGLOBIN 7.8 g/dL (14.0-18.0)
--- NOTE | 2019-10-18 14:23 | NUR ---
Reported H/H 7.8/ 22.8 to Martin JOEL for Dr Pedraza. She advised call the next result as needed. No further orders currently.
--- NOTE | 2019-10-18 17:46 | Progress Note ---
DATE: 10/18/2019 Cardiology Progress Note SUBJECTIVE: Agitated today. Feels thirsty. Denies any chest pain or shortness of breath. Has had bloody stools overnight per patient report. OBJECTIVE: VITAL SIGNS: Temperature 99.2, heart rate 100-110, paced rhythm on telemetry, blood pressure 105/43, respiratory rate 18, O2 saturation 100%. GENERAL: No acute distress, alert. HEENT: Mucosa dry, however, less pale than yesterday. NECK: No JVD. CHEST: Clear to auscultation. CARDIOVASCULAR: Regular rate and rhythm. Normal S1, S2. Systolic ejection murmur. ABDOMEN: Soft. Bowel sounds positive. EXTREMITIES: No edema. CARDIOVASCULAR MEDICATIONS: Reviewed. Levophed was decreased currently 1 mcg per minute. LABORATORY DATA: Studies reviewed. Potassium 5.3, bicarbonate 17, chloride 120. Sodium 141, BUN 97, creatinine 1.6, glucose 124. White blood cells 30.1, hemoglobin 7.8, trending down from 10, platelets 154. INR 1.4. PT is 18.1, PTT 24.4. AST 106, ALT 190, alkaline phosphatase 40, total bilirubin 0.4. ASSESSMENT AND PLAN: A 78-year-old man presents with acute blood loss anemia in the setting of GI bleed, hemoglobin again trending down in spite of receiving 5 units of PRBC transfusion yesterday. His hemodynamics are better in the sense of blood pressure continues to improve with hydration, fluids resuscitation and transfusions. However, still requiring low-dose pressor and still remains tachycardic. Continue to monitor in ICU. Serial hemoglobin and hematocrit . Transfuse as needed to maintain a hemoglobin over 7. Continue to hold off anticoagulation and overall remains with guarded prognosis. Continue metabolic corrections as needed. Currently receiving half NS given hyperchloremic acidosis. Sedrick Raines MD [facility]/MODL /[id number]
[2019-10-18 17:52] LABS: FERRITIN 52.05 ng/mL (21.81-274.66)
[2019-10-18 19:32] LABS: HEMATOCRIT 21.6 % (38.2-49.6); HEMOGLOBIN 7.4 g/dL (14.0-18.0)
[2019-10-18] MEDS ORDERED: PHYTONADIONE 10MG/ML 20 MG in SODIUM CHLORIDE 0.9% 100 ML 100 ML IV ONE (23:00)
[2019-10-18] MEDS ORDERED: CYANOCOBALAMIN INJ 1,000 MCG/ML VIAL IM ONE (23:00)
[2019-10-18] MEDS ORDERED: METRONIDAZOLE 500MG/NS 100ML 150 ML IV ONE (23:15)
[2019-10-18] MEDS ORDERED: PHYTONADIONE 10MG/ML 2 ML ONE (23:27)
[2019-10-18] MEDS ORDERED: SODIUM CHLORIDE 0.9% 100 ML ONE (23:28)
[2019-10-19] VITALS (12 sets, daily range): BP systolic 96–158; BP diastolic 35–73
[2019-10-19] MEDS ORDERED: PHYTONADIONE 10 MG/ML AMP IV SCH
[2019-10-19] MEDS: ALBUMIN 25% 12.5GM 0.25 GM/ML BTL IV SCH ×4 (00:41→22:00)
[2019-10-19 00:44] LABS: BASOPHILS % 0.1 % (0.0-1.0); LYMPHOCYTES # (AUTO) 1.5 (1.0-3.2); LYMPHOCYTES % 4.9 % (18.0-39.1); MEAN CORPUSCULAR HEMOGLOBIN 28.9 pg (28-32); MEAN CORPUSCULAR HGB CONC 33.7 g/dL (31-35); MONOCYTES % 6.6 % (4.4-11.3); NEUTROPHILS # (AUTO) 25.9 (2.1-6.9); NEUTROPHILS % 86.4 % (38.7-80.0); PLATELET COUNT 145 x10e3/uL (140-360); RED BLOOD COUNT 2.35 x10e6/uL (4.3-5.7); RED CELL DISTRIBUTION WIDTH 17.3 % (11.7-14.4)
[2019-10-19 00:47] LABS: HEMATOCRIT 20.2 % (38.2-49.6); HEMOGLOBIN 6.8 g/dL (14.0-18.0)
--- NOTE | 2019-10-19 00:51 | NUR ---
Dr. Tobias Kendall notified of pt's critical hemoglobin & hematocrit. Ordered 2 more units of PRBC to be given and give 20 mg lasix in between.
[2019-10-19] MEDS ORDERED: SODIUM CHLORIDE 0.9% 250ML 250 ML ONE (01:22)
[2019-10-19] MEDS: FUROSEMIDE INJ 10 MG/ML 2 ML VIAL IV PRN (03:26)
[2019-10-19] MEDS: CEFEPIME 1GM/NS 0.9% 50 ML 50 ML IV SCH ×3 (05:24→22:00)
[2019-10-19] MEDS: METRONIDAZOLE 500MG/NS 100ML 100 ML IV SCH ×3 (06:17→17:25)
[2019-10-19] MEDS: PANTOPRAZOL 40MG/SOD CHL 0.9% 50 ML IV SCH ×4 (06:43→22:30)
--- NOTE | 2019-10-19 07:23 | Progress Note ---
DATE: SUBJECTIVE: The patient is a 78-year-old with partial code, comes in with acute GI bleed. The patient bled again yesterday, hemoglobin and hematocrit dropped and has been transfused PRBCs at this time. The patient is confused. No chest pain. No shortness of breath. Very thirsty according to him. CURRENT MEDICATIONS: IV antibiotics. The patient is also on Lasix, lorazepam as needed, and Flagyl. The patient is also titrated on Levophed for maintaining his blood pressures and Protonix drip. OBJECTIVE: VITAL SIGNS: Temperature is 97.4, pulse of 106, respirations of 20, blood pressure is 131/56, and pulse oximetry of 100%. HEENT: Normocephalic and atraumatic. The patient is thin. CVS: S1 and S2 are normal. Regular rate and rhythm. ABDOMEN: Nontender and nondistended. EXTREMITIES: No clubbing. No cyanosis. Decreased pulses in the lower extremities. The patient is cachectic. LABORATORY VALUES: White count is up to 30,000, hemoglobin is 6.8, hematocrit 20.2, and platelet count was 145, neutrophil count 86.5. Chemistry shows sodium 141, potassium is 5.8, BUN of 97, creatinine of 1.71. Troponins have been trended to be negative. Vitamin B12 was 168. CT scan of the abdomen shows circumferential thickening of the transverse colon as well as the first portion of the duodenum, may reflect active inflammation or present 100% source of this patient's bleeding. Extensive atherosclerotic changes of the abdominal aorta, 50% narrowing in the distal infrarenal segment. ASSESSMENT: Mr. Sylvain Dumas with: 1. Leukocytosis, presumably an abdominal infection. The patient is currently on cefepime and metronidazole. We will continue monitoring his white count. 2. Hyperkalemia. 3. Blood loss anemia. Continue with transfusion. 4. Hypertension with hypovolemic shock. Continue with pressors. Remains tachycardic. 5. Acute mental status, probably is from infectious encephalopathy. PLAN: Given his mental status changes and his deterioration, the patient's prognosis is guarded. Talked with family and placed him on partial code. Continue monitoring his medications. Continue monitoring his lytes and further recommendation per clinical course. We will keep him in ICU at this time. Also, the patient has been started on IV Protonix and probably will be scoped today by Dr. Jd Kendall. MD RASHMI Ko/MARIANNAL /[id number]
--- NOTE | 2019-10-19 08:53 | Diagnostic Imaging Report ---
Chest, one view History: Leukocytosis Comparison: 10/17/2019 Findings: Clear lungs. Normal size heart. No pleural effusion or pneumothorax. Impression: No acute findings in the chest Signed by: Joss Sanchez MD on 10/19/2019 8:49 AM
[2019-10-19] MEDS: CYANOCOBALAMIN INJ 1,000 MCG/ML VIAL IM SCH (09:19)
[2019-10-19 10:50] LABS: INR 1.18; PROTHROMBIN TIME 15.8 seconds (11.9-14.5)
[2019-10-19 11:01] LABS: ALBUMIN 2.8 g/dL (3.5-5.0); ALBUMIN/GLOBULIN RATIO 2.2 (0.8-2.0); ANION GAP 10.4 mmol/L (8-16); BASOPHILS % 0.1 % (0.0-1.0); CALCIUM 7.8 mg/dL (8.4-10.2); CREATININE, SERUM 1.19 mg/dL (0.72-1.25); HEMATOCRIT 24.9 % (38.2-49.6); HEMOGLOBIN 8.5 g/dL (14.0-18.0); LYMPHOCYTES % 4.7 % (18.0-39.1); MEAN CORPUSCULAR HEMOGLOBIN 29.5 pg (28-32); MEAN CORPUSCULAR HGB CONC 34.1 g/dL (31-35); MEAN CORPUSCULAR VOLUME 86.5 fL (81-99); MONOCYTES # (AUTO) 1.4 (0.2-0.8); MONOCYTES % 6.5 % (4.4-11.3); NEUTROPHILS # (AUTO) 18.3 (2.1-6.9); NEUTROPHILS % 86.5 % (38.7-80.0); PLATELET COUNT 109 x10e3/uL (140-360); POTASSIUM 4.4 mmol/L (3.5-5.1); RED BLOOD COUNT 2.88 x10e6/uL (4.3-5.7); RED CELL DISTRIBUTION WIDTH 16.6 % (11.7-14.4)
[2019-10-19] MEDS: SODIUM CHLORIDE 0.45% 1,000 ML IV SCH (12:13)
[2019-10-19 12:20] LABS: LYMPHOCYTES % (MANUAL) 4 % (19-48); MONOCYTES % (MANUAL) 9 % (3.4-9.0); NEUTROPHILS % (MANUAL) 87 % (40-74); NUCLEATED RED BLOOD CELLS 5; RBC MORPHOLOGY COMMENT NORMAL
[2019-10-19 12:21] LABS: ANISOCYTOSIS SLIGHT; PLATELET ESTIMATE SLIGHTLY DECREASED; PLATELET MORPHOLOGY COMMENT NORMAL
--- NOTE | 2019-10-19 13:09 | NUR ---
Nutrition Intervention Note RD Recommendation(s) for Physician: -ADAT to cardiac per MD. Plan of Care: RD following, monitoring for tolerance and adequacy. ONS when diet is advanced. Nutrition reason for involvement: (MD Consult-possible protein calorie malnutrition ) RD Assessment 10/18: 78 YOM admitted for absence epileptic syndrome. Pt was seen resting in the ICU, pt was not in the mood to speak at this time. Per nurse, the pt is not altered he is just in a bad mood. Received consult for possible protein calorie malnutrition. Pt was here in Jul 2019 where he was 143 lbs suggesting no recent weight loss in the past 2 months. Pt had mild nutrition focused physical findings of malnutrition. Recommend ONS when pt is no longer NPO to help meet his energy and protein needs. Will continue to monitor. Principal Problems/Diagnoses: PMH: hypertension, history of hyperlipidemia, history of pacemaker placement, history of P GI: Abd: soft, non tender, round Skin: no pressure ulcer recorded Labs: 10/18: Na 146, Cl 124, CO2 16, BUN 92, Ca 7.8, AST 67, ALT 108 Meds: pantroprazole sodium, abx, B-12, lasix, levo IVF: NS at 75 ml/hr Ht:73 in Wt:143 lb BMI:18.9kg/m^2 IBW:184 lbs Malnutrition Evaluation (10/18) The patient does not meet criteria for a specified degree of malnutrition at this time. Will re-evaluate at follow-up as appropriate. Energy intake: -unable to assess (pt did not want to speak at current time) Weight loss: -no weight loss recorded Fat loss: Mild fat loss located around eyes Muscle loss: Mild, muscle loss around the temples Nutrition Prescription (Diet Order): NPO Estimated Nutritional Needs: Calories: 1950-2275kcal/day (30-35 kcal/kg/day) Weight used : CBW Protein : 65-130protein/day (1-2 gram/kg/day ) Weight used: CBW Diet Adequacy: , Not meeting calorie needs, Not meeting protein needs Diet Education Needs Assessment: Diet education not indicated, patient on temporary/transition diet. Nutrition Care Level: mod Nutrition Diagnosis: Inadequate energy intake related to medical condition as evidenced by the pt being NPO. Goal: Patient will meet 75-100% of estimated needs by follow up Progress: (N/A) Interventions: -(mineral (Sodium), fat, cholesterol -modified diet, Commercial beverage, IVF, Prescription medications, Multivitamin/mineral supplement therapy, Collaboration with other providers Monitoring/Evaluation: -Total energy intake, Total protein intake, IVF, Prescription medication, Modified diet, supplement Signed: Kristin Ledezma RD, LD
--- NOTE | 2019-10-19 13:19 | Progress Note ---
DATE: SUBJECTIVE: The patient is hemodynamically improved. He has less agitation. He has no active bleeding. PHYSICAL EXAMINATION: VITAL SIGNS: The patient is afebrile. The blood pressure is 142/53 and the saturation is 100% on 2 L. HEENT: Shows no facial swelling or erythema. CARDIAC: Reveals regular rate and rhythm with a normal S1 and S2. There are no murmurs or rubs. LUNGS: Auscultation of lungs reveals clear breath sounds bilaterally. There is no wheezing. ABDOMEN: Soft and nontender. There is no rebound or guarding. EXTREMITIES: Shows no leg edema or calf tenderness. There is no cyanosis or clubbing. SKIN: Shows no rashes. NEUROLOGICAL: Shows the patient to be confused. LABORATORY DATA: White blood cell count is 21.1 and the hemoglobin is 8.5. The platelet count is 109. The BUN to creatinine ratio is 92 to 1.19 and sodium is 146. The carbon dioxide is 16. Microbiological data shows no growth to date. IMPRESSION: 1. Leukocytosis of unclear etiology. 2. Nnydi-qf-ahkhuvb blood loss. 3. Hypovolemic shock. 4. Pulmonary nodule. 5. Paroxysmal atrial fibrillation. 6. Degenerative neurological disease. PLAN: 1. Continue current antibiotics. 2. Transfer out of intensive care unit. 3. Await GI workup. 4. Continue to monitor blood counts. Scottie Branham MD [facility]/MARIANNAL /[id number]
--- NOTE | 2019-10-19 16:25 | Progress Note ---
DATE: Cardiology Progress Note. SUBJECTIVE: Feels thirsty. Denies chest pain or shortness of breath and was transfused two additional units of PRBC overnight. OBJECTIVE: VITAL SIGNS: Temperature 98 degrees, heart rate 78, blood pressure 124/67, respiratory rate 19, O2 saturation 100%. GENERAL: In no acute distress, confused. Mucosa dry. NECK: No JVD. CHEST: Clear to auscultation. CARDIOVASCULAR: Regular rate and rhythm. Normal S1, S2. No S3 or S4, systolic ejection murmur. ABDOMEN: Soft. Bowel sounds positive. EXTREMITIES: No edema. CARDIOVASCULAR MEDICATIONS: Reviewed, off Levophed. STUDIES: Reviewed. Creatinine 1.1. Hemoglobin 8.5, platelets 109, white blood cells 21. Potassium 4.4, bicarbonate 16 with a chloride 124, and sodium 146, BUN 92, glucose 88. ASSESSMENT AND PLAN: 1. Acute GI bleed and acute blood loss anemia status post hypovolemic/hemorrhagic shock. 2. Hyperchloremic metabolic acidosis, now resolved. 3. Hypervolemia. 4. History of normal-pressure hydrocephalus . 5. Hypertension, status post pacemaker for AV block. 6. History of paroxysmal atrial fibrillation, sick sinus syndrome. RECOMMENDATIONS: Continue supportive care for now and hold all anticoagulation given GI bleed. Monitor H and H. Appreciate GI input. Monitor and gradually correct. Hyperchloremic metabolic acidosis felt likely related to fluid resuscitation in the setting of presenting shock. Overall, Sylvain remains with guarded prognosis. We will follow closely with you. MD GELY Landrum/SAGE /[id number]
--- NOTE | 2019-10-19 18:16 | NUR ---
PATIENT RECEIVED FROM ICU PER STRETCHER. ALERT AND VERBALLY RESPONSIVE, SKIN WARM AND DRY TO TOUCH WITH BRUISES TO BOTH ARMS. OLSON CATHETER DRAINING CLEAR YELLOW URINE. BED IN LOWER POSITION, CALL LIGHT AT REACH.
[2019-10-19 18:29] LABS: HEMATOCRIT 25.6 % (38.2-49.6); HEMOGLOBIN 12.6 g/dL (14.0-18.0)
--- NOTE | 2019-10-19 18:46 | Consultation ---
DATE OF CONSULTATION: 10/18/2019 CHIEF COMPLAINT: Leukocytosis, concerned about sepsis. HISTORY OF PRESENT ILLNESS: This is a patient who is a very pleasant 78-year-old gentleman, who has history of hypertension, hyperlipidemia, arrhythmia status post pacemaker, history of pulmonary embolism, history of low back pain, comes in with 2 days history of lethargy, not feeling well or doing well. Apparently, his family did not hear from him, they went to see him. He was found at home. He was lethargic. He was brought to the emergency room. In the emergency room, he was found to have hemoglobin of 4.1. He was admitted. He was not intubated. The patient was alert. Does not have specific complaint, little bit confused, but notes no fever, no chills since admission. PAST MEDICAL HISTORY: 1. Femur surgery. 2. Tonsillectomy. 3. Esophageal surgery. 4. Nasal surgery. PAST SURGICAL HISTORY: As above and pacemaker placement, cataract surgery. ALLERGIES: NKA. SOCIAL HISTORY: Does not smoke, drug abuse, or alcohol abuse. He has history of smoking in the past, but he stopped several years ago. He also has history of CVA. History of hypertension and diabetes mellitus in the family. REVIEW OF SYSTEMS: At present time, he is just weak, not a good source of information. The patient was admitted. He was seen by Cardiology and the patient was found to have acute blood loss, solitary pulmonary nodule, acute kidney injury, leukocytosis with malnutrition. He was also seen by Cardiology and was seen by Pulmonary. His blood cultures are pending. His white count when he first came was 14,000, went up to 18,000, and went up to 30,000. His hemoglobin was 6.8, platelets of 145. PHYSICAL EXAMINATION: GENERAL: He is currently alert and comfortable. VITALS: Stable, afebrile. HEENT: Not icteric. NECK: Supple. CHEST: Few crackles bilaterally. COR: S1-S2, no murmur. ABDOMEN: Soft, bowel sounds present, and no tenderness. EXTREMITIES: No edema. SKIN: No rash. IMPRESSION: 1. Leukocytosis, acute on chronic, probably reactive from his gastrointestinal bleed. 2. Hypotension, maybe sepsis, not so sure. It could be just due to reaction as the patient received 4 units of packed RBC. 3. He had a CAT scan which showed there is no new intraperitoneal hemorrhage. 4. He has some inflammation of the colon. 5. Hypotension, probably, more than likely it is due to his anemia, which is not clear why, the patient could be septic. Agree with blood cultures. Agree with cefepime and agree with Flagyl. Recheck CBC. Recheck Chem panel. 6. I agree with supportive care. He would need colonoscopy and EGD. 7. Concern about this finding of wall thickening of transverse colon. Await GI workup. 8. Recheck CBC and recheck Chem panel. Continue supportive care. We will follow with you. MD KELSEY Fletcher/SAGE /[id number]
--- NOTE | 2019-10-19 20:06 | NUR ---
Received change of shift report from AM nurse. Walking rounds completed.
[2019-10-20] VITALS (7 sets, daily range): BP systolic 105–193; BP diastolic 61–83
[2019-10-20] MEDS: SODIUM CHLORIDE 0.45% 1,000 ML IV SCH ×2 (01:20→13:49)
[2019-10-20] MEDS: PANTOPRAZOL 40MG/SOD CHL 0.9% 50 ML IV SCH ×4 (03:30→17:05)
[2019-10-20] MEDS: ALBUMIN 25% 12.5GM 0.25 GM/ML BTL IV SCH ×3 (06:00→12:21)
[2019-10-20] MEDS: METRONIDAZOLE 500MG/NS 100ML 100 ML IV SCH ×4 (06:00→17:05)
[2019-10-20] MEDS: CEFEPIME 1GM/NS 0.9% 50 ML 50 ML IV SCH ×3 (06:00→21:39)
--- NOTE | 2019-10-20 07:00 | NUR ---
The pt. is in transport to [facility] for EGD And Colonoscopy and no v/s were taken at this time.
--- NOTE | 2019-10-20 07:08 | Progress Note ---
DATE: SUBJECTIVE: This patient is a 78-year-old gentleman, partial code, came in with acute GI bleed, 7 units of PRBCs has been transfused. The patient is scheduled for EGD today. Currently, the patient is on albumin, cefepime, vitamin B12, Flagyl, pantoprazole, and sodium chloride. No changes in his mental status. The patient is in and out of mentation, wants water at this time secondary to being n.p.o. OBJECTIVE: VITAL SIGNS: Temperature 97.0, pulse of 90, respirations of 18, blood pressure is 193/83, pulse oximetry of 99%. HEENT: Normocephalic and atraumatic. Pupils are reactive to light and accommodation. The patient is cachectic. CVS: S1 and S2 are normal. Regular rate and rhythm. ABDOMEN: Nontender, nondistended. EXTREMITIES: No clubbing. No cyanosis. Positive for decreased pulses. LABORATORY VALUES: From yesterday hemoglobin PRBC. Chemistry show sodium of 146, potassium of 4.4, BUN of 92, creatinine of 1.9. ALT and AST have been trending down and albumin is low. Toxicology, again positive for benzodiazepines. Stool cultures occult blood was positive. MICROBIOLOGY: No growth in 48 hours. ASSESSMENT: Mr. Sylvain Dumas with: 1. Acute blood loss anemia. 2. Hemorrhagic shock and hypovolemic shock. PLAN: Continue with hydration. Continue with blood resuscitation. The patient is feeling better. Metabolic acidosis resolved. Hypotension and shock resolved and norepinephrine stopped. History of atrial fibrillation and sick sinus syndrome and hypoalbuminemia. Continue current medication. GI to do an EGD today. Monitor H and H. We will continue monitoring the patient. Further recommendations per clinical course. We will follow the patient after EGD, and again the patient is partial code. MD RASHMI Ko/SAGE /[id number]
--- NOTE | 2019-10-20 09:04 | Operative Report ---
DATE OF PROCEDURE: 10/20/2019 SURGEON: Jd Kendall MD PROCEDURE: Esophagogastroduodenoscopy with biopsies. INDICATIONS FOR PROCEDURE: Anemia, occult blood in stool. MEDICATIONS: The patient was done under MAC, please see anesthesiologist's note. PROCEDURE IN DETAIL: With the patient in left lateral decubitus position, a flexible fiberoptic Olympus gastroscope was introduced into the esophagus under direct visualization without any difficulty. There was some patchy erythema noted in the distal esophagus. The scope was then advanced with ease into the stomach, mucosa overlying the antrum and the body revealed some patchy areas of erythema. Three minute ulcers up to 5 mm in size were noted in the antrum without active bleeding or stigmata of recent hemorrhage, biopsies were obtained. Pylorus was intubated with ease and the scope was advanced all the way to the second portion of the duodenum. The scope was then withdrawn slowly. A minute ulcer was noted in the proximal second portion as well as in the duodenal bulb without active bleeding or stigmata of recent hemorrhage. The scope was then withdrawn back into the stomach and retroflexed, and intact Wm fundoplication was noted. The scope was then straightened out, it was subsequently withdrawn. The patient tolerated the procedure well. IMPRESSION: 1. Distal esophagitis, mild. 2. Status post Wm fundoplication, intact. 3. Gastritis, mild. 4. Gastric ulcers, antrum, up to 5 mm in size without active bleeding or stigmata of recent hemorrhage, biopsies obtained. 5. Duodenal ulcers, bulb and second portion up to 4 mm in size without active bleeding or stigmata of recent hemorrhage. PLAN: Follow up histology. Initiate full liquid diet. Findings do not necessarily explain the patient's blood loss. Might benefit from a colonoscopy. We will discuss with the patient. Jd Kendall MD [facility]/MODL /[id number] cc: Pino Escamilla MD
[2019-10-20] MEDS: CYANOCOBALAMIN INJ 1,000 MCG/ML VIAL IM SCH (09:21)
[2019-10-20 09:40] LABS: BASOPHILS % 0.1 % (0.0-1.0); EOSINOPHILS % 0.2 % (0.0-6.0); HEMATOCRIT 25.6 % (38.2-49.6); HEMOGLOBIN 8.5 g/dL (14.0-18.0); LYMPHOCYTES % 6.5 % (18.0-39.1); MEAN CORPUSCULAR HEMOGLOBIN 29.4 pg (28-32); MEAN CORPUSCULAR HGB CONC 33.2 g/dL (31-35); MEAN CORPUSCULAR VOLUME 88.6 fL (81-99); MONOCYTES # (AUTO) 1.1 (0.2-0.8); MONOCYTES % 7.1 % (4.4-11.3); NEUTROPHILS # (AUTO) 13.6 (2.1-6.9); NEUTROPHILS % 84.7 % (38.7-80.0); PLATELET COUNT 124 x10e3/uL (140-360); RED BLOOD COUNT 2.89 x10e6/uL (4.3-5.7); RED CELL DISTRIBUTION WIDTH 17.2 % (11.7-14.4)
--- NOTE | 2019-10-20 10:00 | NUR ---
The pt. returned from EGD and is able to have a full liquid diet and to continue all previous orders.
[2019-10-20 10:02] LABS: ALANINE AMINOTRANSFERASE 86 IU/L (0-55); ALBUMIN 3.5 g/dL (3.5-5.0); ALBUMIN/GLOBULIN RATIO 2.9 (0.8-2.0); ALKALINE PHOSPHATASE 53 IU/L (40-150); ANION GAP 13.5 mmol/L (8-16); BLOOD UREA NITROGEN 51 mg/dL (7-26); BUN/CREATININE RATIO 59 (6-25); CALCIUM 8.1 mg/dL (8.4-10.2); CARBON DIOXIDE 14 mmol/L (22-29); CHLORIDE 123 mmol/L (98-107); CREATININE, SERUM 0.86 mg/dL (0.72-1.25); EST GLOMERULAR FILTRATION RATE > 60 ML/MIN (60-); GLUCOSE 77 mg/dL (74-118); POTASSIUM 4.5 mmol/L (3.5-5.1); SODIUM 146 mmol/L (136-145)
--- NOTE | 2019-10-20 14:10 | Progress Note ---
DATE: SUBJECTIVE: The patient is transferred out of the Intensive Care Unit. He is hemodynamically stable. He still has some confusion. PHYSICAL EXAMINATION: VITAL SIGNS: The blood pressure is 136/66 and saturation is 98%. HEENT: Shows no facial swelling or erythema. CARDIAC: Reveals a regular rate and rhythm with normal S1 and S2. LUNGS: Auscultation of lungs reveals clear breath sounds bilaterally. There is no wheezing. ABDOMEN: Soft and nontender. There is no rebound or guarding. EXTREMITIES: Shows no leg edema or calf tenderness. There is no cyanosis or clubbing. SKIN: Shows no rashes. NEUROLOGICAL: Shows no focal abnormalities. LABORATORY DATA: White blood cell count is 16.1 and hemoglobin is 8.5. The platelet count is 124. The BUN to creatinine ratio is 51 to 0.86 and the sodium is 146. Carbon dioxide is 14. IMPRESSION: 1. Anemia secondary to acute blood loss. 2. Hypovolemic shock. 3. Leukocytosis of unclear etiology. 4. Pulmonary nodule. 5. Paroxysmal atrial fibrillation. 6. Non-anion gap acidosis. PLAN: 1. Reduce amount of chloride and fluid to prevent worsening acidosis. 2. Continue current antibiotics. 3. Swallowing evaluation. 4. Continue to monitor white blood cell count and blood counts. 5. Complete GI evaluation. Scottie Branham MD [facility]/MODL /[id number]
[2019-10-20] MEDS ORDERED: LIDOCAINE HCL 2% LOCAL INJ 5 ML SDV VIAL INJ ONE (17:37)
[2019-10-20] MEDS ORDERED: PROPOFOL IV EMULSION 10 MG/ML 50 ML VIAL ONE (17:37)
--- NOTE | 2019-10-20 19:15 | NUR ---
Bedside report and rounding completed with offgoing nurse. Patient in bed with call light within reach. Bed locked and in lowest position, bed alarm on and active. No issues or concerns noted.
[2019-10-20] MEDS ORDERED: BISACODYL 5 MG TAB EC PO ONE (23:45)
[2019-10-21] MEDS: PANTOPRAZOL 40MG/SOD CHL 0.9% 50 ML IV SCH ×5 (00:14→19:30)
[2019-10-21] MEDS ORDERED: BISACODYL 5 MG TAB EC PO ONE ×4 (00:15→09:58)
[2019-10-21] MEDS: METRONIDAZOLE 500MG/NS 100ML 100 ML IV SCH ×4 (00:55→17:50)
[2019-10-21 01:00] VITALS: BP 134/69
[2019-10-21] MEDS: SODIUM CHLORIDE 0.45% 1,000 ML IV SCH ×2 (04:32→17:20)
[2019-10-21] MEDS ORDERED: MAGNESIUM HYDROXIDE 30 ML UDC PO ONE (04:45)
[2019-10-21] MEDS ORDERED: CITRATE OF MAGNESIA 300ML BOTTLE PO ONE ×2 (05:00→07:00)
[2019-10-21 05:12] VITALS: BP 153/82
[2019-10-21] MEDS: CEFEPIME 1GM/NS 0.9% 50 ML 50 ML IV SCH ×3 (06:00→21:42)
[2019-10-21 06:31] LABS: BLOOD UREA NITROGEN 32 mg/dL (7-26); BUN/CREATININE RATIO 42 (6-25); CALCIUM 7.8 mg/dL (8.4-10.2); CARBON DIOXIDE 18 mmol/L (22-29); CHLORIDE 115 mmol/L (98-107); CREATININE, SERUM 0.77 mg/dL (0.72-1.25); EST GLOMERULAR FILTRATION RATE > 60 ML/MIN (60-); GLUCOSE 92 mg/dL (74-118); SODIUM 140 mmol/L (136-145)
[2019-10-21 07:04] LABS: BASOPHILS % 0.1 % (0.0-1.0); EOSINOPHILS # (AUTO) 0.2 (0.0-0.4); EOSINOPHILS % 1.4 % (0.0-6.0); HEMATOCRIT 25.4 % (38.2-49.6); HEMOGLOBIN 8.4 g/dL (14.0-18.0); LYMPHOCYTES # (AUTO) 1.1 (1.0-3.2); LYMPHOCYTES % 8.1 % (18.0-39.1); MEAN CORPUSCULAR HEMOGLOBIN 29.4 pg (28-32); MEAN CORPUSCULAR HGB CONC 33.1 g/dL (31-35); MEAN CORPUSCULAR VOLUME 88.8 fL (81-99); MONOCYTES % 7.2 % (4.4-11.3); NEUTROPHILS # (AUTO) 11.5 (2.1-6.9); NEUTROPHILS % 81.4 % (38.7-80.0); PLATELET COUNT 139 x10e3/uL (140-360); RED BLOOD COUNT 2.86 x10e6/uL (4.3-5.7); RED CELL DISTRIBUTION WIDTH 17.2 % (11.7-14.4)
--- NOTE | 2019-10-21 07:15 | NUR ---
Bedside report and rounding completed with oncoming nurse. Patient in bed with call light within reach. Bed locked and in lowest position. No issues or concerns noted.
[2019-10-21 07:20] VITALS: BP 163/69
[2019-10-21 08:00] VITALS: BP 163/69
--- NOTE | 2019-10-21 08:45 | NUR ---
SPOKE WITH DR BASURTO INFORMED PT STILL HAVING BLACK STOOLS ,ORDERS TO GIVE MOR PREP
[2019-10-21] MEDS: CYANOCOBALAMIN INJ 1,000 MCG/ML VIAL IM SCH (09:00)
--- NOTE | 2019-10-21 10:53 | Progress Note ---
DATE: SUBJECTIVE: The patient is a 78-year-old male, who came in with acute GI bleed. The patient received 7 units of blood currently, still confused. He had an endoscopy done by Dr. Jd Kendall yesterday which showed distal esophagitis. Wm fundoplication was intact, gastritis was mild. The patient had a gastric ulcer 5 mm in size without active bleeding or stigmata of bleeding, duodenal ulcers without active bleeding. The patient will have a colonoscopy secondary to the amount of bleed he had. OBJECTIVE: VITAL SIGNS: Temperature is 96.5, pulse 86, respirations 17, blood pressure is 153/82, and pulse oximetry of 95%. HEENT: Normocephalic and atraumatic. The patient is very cachectic. CVS: S1 and S2 normal. Regular rate and rhythm. ABDOMEN: Nondistended and nontender. EXTREMITIES: No edema. Decreased pulses. ASSESSMENT: 1. Anemia of acute blood loss. 2. Hypovolemic shock better. 3. Leukocytosis clearing. 4. Pulmonary nodule. Need followup. 5. Paroxysmal atrial fibrillation. We will continue monitoring and keep him off his anticoagulation. Acidosis is resolving. PLAN: Continue to monitor the patient. Check labs again today. Further recommendation per clinical course. MD RASHMI Ko/SAGE /[id number]
[2019-10-21 12:00] VITALS: BP 145/75
--- NOTE | 2019-10-21 12:15 | NUR ---
LINENS CHANGED PT HAD VERY LARGE BLACK STOOL.DENIES PAIN
--- NOTE | 2019-10-21 14:30 | NUR ---
STILL HAVING BLACK STOOLS
--- NOTE | 2019-10-21 14:33 | Progress Note ---
DATE: SUBJECTIVE: The patient still has some black stools. His colonoscopy was postponed. He is hemodynamically stable, but he still has some confusion. PHYSICAL EXAMINATION: VITAL SIGNS: The blood pressure is 145/75 and saturation is 95%, pulse is 72. HEENT: Shows no facial swelling or erythema. CARDIAC: Reveals regular rate and rhythm with normal S1, S2. LUNGS: Auscultation of lungs reveals rhonchorous breath sounds bilaterally. There is no wheezing. ABDOMEN: Soft, nontender. There is no rebound or guarding. EXTREMITIES: Show no leg edema or calf tenderness. There is no cyanosis or clubbing. SKIN: Shows no rashes. NEUROLOGICAL: Shows no focal abnormalities. LABORATORY DATA: White blood cell count is 14, hemoglobin is 8.4, platelet count is 139. IMPRESSION: 1. Anemia secondary to acute blood loss. 2. Hypovolemic shock. 3. Pulmonary nodule. 4. Leukocytosis. 5. Paroxysmal atrial fibrillation. PLAN: 1. Continue current antibiotics. 2. Await colonoscopy. 3. Continue to monitor blood counts. 4. We will need CT scan of the chest as an outpatient for followup. MD DAVID Rosa/SAGE /[id number]
--- NOTE | 2019-10-21 14:53 | Progress Note ---
DATE: 10/21/2019 Cardiology Progress Note SUBJECTIVE: Denies any chest pain or shortness of breath. OBJECTIVE: VITAL SIGNS: Temperature 97.4, heart rate 72, blood pressure 145/75, respiratory rate 18, and O2 saturation 95%. GENERAL: No acute distress. Alert. HEENT: Mucosa dry. NECK: No JVD. CHEST: Clear to auscultation. CARDIOVASCULAR: Regular rate and rhythm. Normal S1 and S2. No S3. No S4. ABDOMEN: Soft. Bowel sounds positive. EXTREMITIES: No edema. CARDIOVASCULAR MEDICATIONS: Reviewed. STUDIES: Reviewed. Creatinine 0.7. Hemoglobin 8.4 and platelets 139. INR 1.18. ASSESSMENT: A 78-year-old man with acute blood loss anemia, acute gastrointestinal bleed, sick sinus syndrome, status post pacemaker implant for atrioventricular block, paroxysmal atrial fibrillation, hypertension, and cerebrovascular disease. RECOMMENDATIONS: 1. Continue to monitor H and H. 2. Continue supportive care. 3. Hold anticoagulants for now. Sedrick Raines MD [facility]/MODL /[id number]
[2019-10-21] MEDS ORDERED: CHLORASEPTIC SPRAY 177 ML BTL MM PRN (15:00)
[2019-10-21 16:00] VITALS: BP 151/75
--- NOTE | 2019-10-21 17:46 | NUR ---
UP IN BED ,DENIES PAIN ,NO DISTRESS NOTED.
--- NOTE | 2019-10-21 20:00 | NUR ---
Received change of shift report from AM nurse. Walking rounds completed.
--- NOTE | 2019-10-21 20:05 | Progress Note ---
DATE: 10/20/2019 Cardiology Progress Note SUBJECTIVE: Thirsty. No other complaints at this time. OBJECTIVE: VITAL SIGNS: Temperature 97.1, heart rate 72, blood pressure 136/66, respiratory rate 14, O2 saturation > 92% GENERAL: In no acute distress, alert. HEENT: Mucosa dry. NECK: No JVD. CHEST: Clear to auscultation. CARDIOVASCULAR: Regular rate and rhythm. Normal S1, S2. No S3, no S4. No murmurs, no rubs. ABDOMEN: Soft. Bowel sounds positive. EXTREMITIES: No edema. Warm extremities. CARDIOVASCULAR MEDICATIONS: Reviewed. Levophed off. Furosemide p.r.n. blood transfusions, cefepime and metronidazole antibiotics. STUDIES: Reviewed. Potassium 4.5, bicarb of 14, chloride 123, sodium 146, BUN 51, creatinine 0.86, glucose 77. White blood cells 16.1, hemoglobin 8.5. INR 1.18, PT 15.8, PTT 24.4. AST 58, ALT 86, alkaline phosphatase 53, total bilirubin 0.5. ASSESSMENT AND PLAN: A 78-year-old man with: 1. Acute GI bleed in the setting of chemotherapy. 2. Paroxysmal atrial fibrillation and sick sinus syndrome. 3. Status post pacemaker implant for AV block. 4. Anemia. 5. Status post hemorrhagic/hypovolemic shock. RECOMMENDATION: Continue current cardiovascular management. The patient seems hemodynamically stable today. BUN to creatinine ratio still elevated, however trend is improving. Continues to have metabolic hyperchloremic acidosis. Free water intake increase MD GELY Landrum/SAGE /[id number] MTDD
[2019-10-22] VITALS (11 sets, daily range): BP systolic 126–181; BP diastolic 58–92
--- NOTE | 2019-10-22 | NUR ---
Dr Kendall came to see patient. Order given to start golytely. Patient not clear. Patient drinking very small amount of prep. Encouraging patient to drink. Patient refusing. Continue encouraging.
[2019-10-22] MEDS: PANTOPRAZOL 40MG/SOD CHL 0.9% 50 ML IV SCH ×4 (00:15→22:40)
[2019-10-22] MEDS ORDERED: PEG (High)/E-LYTE SOLN 4,000 ML BTL PO ONE (01:00)
--- NOTE | 2019-10-22 05:02 | NUR ---
Patient continue to drink prep slowly. Patient not clear.
--- NOTE | 2019-10-22 05:13 | NUR ---
Patient had 4 BMs. Patient not clear.
[2019-10-22] MEDS: CEFEPIME 1GM/NS 0.9% 50 ML 50 ML IV SCH ×3 (05:30→22:30)
[2019-10-22 05:53] LABS: BASOPHILS % 0.2 % (0.0-1.0); EOSINOPHILS # (AUTO) 0.3 (0.0-0.4); HEMATOCRIT 26.6 % (38.2-49.6); LYMPHOCYTES # (AUTO) 1.2 (1.0-3.2); LYMPHOCYTES % 9.6 % (18.0-39.1); MEAN CORPUSCULAR HEMOGLOBIN 29.8 pg (28-32); MEAN CORPUSCULAR HGB CONC 33.8 g/dL (31-35); MEAN CORPUSCULAR VOLUME 88.1 fL (81-99); MONOCYTES % 8.4 % (4.4-11.3); NEUTROPHILS # (AUTO) 9.5 (2.1-6.9); NEUTROPHILS % 77.8 % (38.7-80.0); PLATELET COUNT 157 x10e3/uL (140-360); RED BLOOD COUNT 3.02 x10e6/uL (4.3-5.7); RED CELL DISTRIBUTION WIDTH 17.8 % (11.7-14.4)
[2019-10-22 06:27] LABS: ANION GAP 8.3 mmol/L (8-16); BUN/CREATININE RATIO 21 (6-25); CALCIUM 7.7 mg/dL (8.4-10.2); CARBON DIOXIDE 21 mmol/L (22-29); CHLORIDE 115 mmol/L (98-107); CREATININE, SERUM 0.72 mg/dL (0.72-1.25); EST GLOMERULAR FILTRATION RATE > 60 ML/MIN (60-); GLUCOSE 113 mg/dL (74-118); POTASSIUM 3.3 mmol/L (3.5-5.1); SODIUM 141 mmol/L (136-145)
[2019-10-22 06:31] LABS: BLOOD UREA NITROGEN 15 mg/dL (7-26)
[2019-10-22] MEDS: SODIUM CHLORIDE 0.45% 1,000 ML IV SCH ×2 (06:40→20:00)
--- NOTE | 2019-10-22 07:11 | Progress Note ---
DATE: SUBJECTIVE: The patient is a 78-year-old male, who came in with acute GI bleed, has gotten 7 units of PRBCs, feeling better. An endoscopy yesterday showed duodenal ulcers and gastric ulcers with no stigmata of bleeding. Scheduled for a colonoscopy today. He is ongoing with the prep. No chest pain. No shortness of breath. He is feeling better, is more perky. OBJECTIVE: VITAL SIGNS: Temperature is 97.6, pulse of 87, respirations of 19, blood pressure is 151/83, pulse oximetry of 96%. HEENT: Normocephalic and atraumatic. Pupils are reactive to light and accommodation. The patient is more alert. CVS: S1 and S2 normal. No murmurs. No rubs. ABDOMEN: Soft, nontender. EXTREMITIES: No clubbing. No cyanosis. Decreased pulses. MEDICATIONS: Reviewed. LABORATORY VALUES: White count is 12,000, down; neutrophil count 77.8. Chemistry; sodium 141, potassium 3.3, BUN of 15, creatinine 0.71. ALT and AST are trending down. Coags were good. INR is 1.18. Serology all negative. ASSESSMENT: Mr. Sylvain Dumas with: 1. Acute gastrointestinal bleed, status post 7 units of transfusion number. 2. Paroxysmal atrial fibrillation. Continue monitoring and is off oral anticoagulant, will stay and remained off, status post pacemaker placement. 3. History of hemorrhagic and hypovolemic shock. The patient's cardiovascular system is responding better. Continue to monitor the patient. We will wait for the colonoscopy result to see if there is any bleeding or signs of bleeding stigmata. MD RASHMI Ko/MODL /[id number]
--- NOTE | 2019-10-22 08:00 | NUR ---
RECIEVED PT RESTING IN BED. PERICARE GIVEN. OLSON CARE GIVEN. PT HAD SMALL FORMED BM.
[2019-10-22] MEDS: CYANOCOBALAMIN INJ 1,000 MCG/ML VIAL IM SCH ×2 (08:38→08:48)
--- NOTE | 2019-10-22 09:30 | NUR ---
DR. Joi BASURTO NOTIFIED OF NOT BOWEL NOT BEING CLEAR. NEW ORDER NOTED.
[2019-10-22] MEDS ORDERED: CITRATE OF MAGNESIA 300ML BOTTLE PO SCH (10:00)
[2019-10-22] MEDS ORDERED: HYDRALAZINE HCL 20 MG/ML VIAL IV PRN (11:15)
[2019-10-22] MEDS: METRONIDAZOLE 500MG/NS 100ML 100 ML IV SCH ×3 (12:00→17:38)
--- NOTE | 2019-10-22 12:00 | NUR ---
TAP ENEMA GIVEN. CLEAR YELLOW DRAINAGE PRESENT. NO FORMED STOOL.
--- NOTE | 2019-10-22 12:24 | NUR ---
ST NOTE: Pt having colonoscopy, will return for Speech Therapy on 09/22/19, handoff to KRISTINA Dunn
--- NOTE | 2019-10-22 12:56 | NUR ---
PT TO ENDOSCOPY VIA HOSPITAL BED FOR COLONOSCOPY. PT AWAKE AND ALERT. RESP EVEN.
--- NOTE | 2019-10-22 15:25 | NUR ---
RECIEVED PT FROM PACU S/P COLONSCOPY. PT AWAKE AND ALERT. TOLERATING ICE CHIPS. DENIES OF ANY PAIN. RESP EVEN WITHOUT DISTRESS.
[2019-10-22] MEDS ORDERED: MIDAZOLAM HCL 2 MG/2 ML VIAL ONE (15:51)
--- NOTE | 2019-10-22 15:52 | Progress Note ---
DATE: 10/22/2019 Cardiology Progress Note SUBJECTIVE: Denies chest pain or shortness of breath, better mode today, making jokes. OBJECTIVE: VITAL SIGNS: Temperature 97.4, heart rate 79, blood pressure 181/92, respiratory rate 20, O2 saturation 98%. GENERAL: In no acute distress, alert. NECK: No JVD. CHEST: Clear to auscultation. CARDIOVASCULAR: Regular rate and rhythm. Normal S1 and S2. No S3 or S4. Systolic ejection murmur. ABDOMEN: Soft. Bowel sounds positive. EXTREMITIES: No edema. CARDIOVASCULAR MEDICATIONS: Reviewed. Furosemide 20 mg p.r.n. posttransfusion. LABORATORY DATA: Studies reviewed. Sodium 141, potassium 3.3, chloride 115, bicarbonate 21, improving, BUN 15 improving, creatinine 0.72, glucose 113. White blood cells 12.2, hemoglobin 9, platelets 157, PT 15.8, PTT 24.4, INR 1.18. AST 58, ALT 86, alkaline phosphatase 53, total bilirubin 0.5. ASSESSMENT: 1. A 78-year-old man with hypertension. 2. Acute gastrointestinal bleed. 3. Acute blood loss anemia. 4. Paroxysmal atrial fibrillation. 5. Sick sinus syndrome. 6. Pacemaker, status post atrioventricular block. 7. Normal-pressure hydrocephalus. 8. Cerebrovascular disease. RECOMMENDATIONS: 1. Consider transitioning off IV fluids starting today and monitor blood pressure if stable without recurrent bleeding by tomorrow resume antihypertensive medications including beta-gely. 2. Given life-threatening GI bleed, do not consider Sylvain to be a candidate at this point to resume long-term anticoagulation for thromboembolic risk prevention. Once COVID pandemia better controlled and elective procedures being resumed, can consider short-term anticoagulation if okay with GI coupled by Watchman procedure if being candidate after further outpatient workup at this time, for now hold anticoagulation. Sedrick Raines MD [facility]/MODL /[id number]
--- NOTE | 2019-10-22 17:39 | NUR ---
PT UP IN CHAIR DOING WELL,DENIES PAIN,TOLERATING DIET WELL
--- NOTE | 2019-10-22 18:14 | Operative Report ---
DATE OF PROCEDURE: 10/22/2019 SURGEON: Jd Kendall MD INDICATION FOR PROCEDURE: Anemia, occult blood in stool. MEDICATIONS: The patient was done under MAC, please see anesthesiologist's note. PROCEDURE IN DETAIL: With the patient in left lateral decubitus position under flexible fiberoptic Olympus, colonoscope was inserted into the rectum with ease and advanced with some difficulty all the way to the cecum. The colon was excessively long, tortuous and spastic and suboptimally visualized. The scope was then withdrawn slowly mucosa overlying the cecum appeared to be within normal limits. Whatever was visualized, the mucosa overlying the ascending appeared to be within normal limits. An ulcerated segment was noted in the distal transverse colon that was biopsied. Some diverticular disease was noted in the distal descending and the sigmoid. The rectum appeared to be within normal limits. The scope was then retroflexed into the distal rectum and the area around the dentate line grossly appeared to be within normal limits. It was not optimally visualized as the patient was getting red of the insufflated air. The scope was then straightened out, it was subsequently withdrawn, the patient tolerated the procedure well. IMPRESSION: 1. Colon excessively long, tortuous and spastic, suboptimally visualized. 2. Ulcerated segment distal transverse colon biopsy. 3. Diverticulosis. PLAN: Follow up histology. Initiate GI soft diet. The patient will need to have a followup colonoscopy in approximately 3 months to document healing if biopsies were benign. Jd Kendall MD [facility]/SAGE /[id number] cc: Pino Escamilla MD
--- NOTE | 2019-10-22 20:30 | NUR ---
Received report from night nurse (Angel RN). Pt alert and oriented x3. Ambulatory with use of walker and standby assist prn. [place] catheter in place for urinary retention. On IVF (1/2NS at 75ml/hr). On Protonix drip at 10ml/hr. S/P Colonoscopy on 10/21. Call kearney within reach. Will monitor closely.
[2019-10-23] MEDS: METRONIDAZOLE 500MG/NS 100ML 100 ML IV SCH ×5 (00:50→23:23)
--- NOTE | 2019-10-23 02:00 | NUR ---
Pt assisted to bedside recliner per pt request. Pt in stable condition.
[2019-10-23] MEDS: PANTOPRAZOL 40MG/SOD CHL 0.9% 50 ML IV SCH ×4 (02:20→21:35)
[2019-10-23 04:00] VITALS: BP 150/72
--- NOTE | 2019-10-23 05:00 | NUR ---
Pt assisted back to bed per pt request. Pt ambulated via walker with standby assist. Condition stable.
[2019-10-23] MEDS: CEFEPIME 1GM/NS 0.9% 50 ML 50 ML IV SCH ×3 (05:30→21:18)
[2019-10-23 07:35] VITALS: BP 159/74
--- NOTE | 2019-10-23 07:35 | NUR ---
PATIENT SITTING UP IN BED WATCHING TV, NO DISTRESS NOTED. DENIED PAIN AT THIS TIME. BED IN LOWER POSITION, CALL LIGHT AT REACH.
--- NOTE | 2019-10-23 08:01 | Progress Note ---
DATE: SUBJECTIVE: The patient is a 78-year-old gentleman, who came in with acute GI bleed, 7 units of PRBCs have been given. The patient is stable, perky again and in good spirits. No chest pain. No shortness of breath. He is very hungry. OBJECTIVE: VITAL SIGNS: Temperature is 98.4, pulse of 77, respirations of 18, blood pressure is 150/72, and pulse oximetry of 97%. HEENT: Normocephalic and atraumatic. Pupils are reactive. The patient is cachectic. CVS: S1 and S2 normal, regular in rhythm. ABDOMEN: Nontender and nondistended. EXTREMITIES: No clubbing, no cyanosis, no edema. Decreased pulses. LABORATORY VALUES: The patient's white count was 12.23. Chemistries; sodium of 141, potassium 3.3, replaced yesterday. Colonoscopy results by Dr. Jd Kendall shows colon excessively long, tortuous, ulcerative segment in the distal transverse colon. Biopsy taken, diverticulosis. ASSESSMENT: Mr. Piter Narayan with; 1. Acute GI bleed, upper and lower. Endoscopies are done, upper did show a nonbleeding ulcer. 2. Colonoscopy showed colitis in the transverse colon area and also biopsies were taken. PLAN: Continue to monitor the patient. H and H have been stable. Potassium will be replaced as needed. No growth in blood cultures have been noted. The patient's bleed is better, acute blood loss anemia is stable, paroxysmal atrial fibrillation, stable. Pacemaker and history of normal-pressure hydrocephalus, which can be treated and/or monitored as an outpatient. Further recommendation per clinical course. We will continue to monitor the patient. MD NORM KoJ/MODL /[id number]
[2019-10-23] MEDS: CYANOCOBALAMIN INJ 1,000 MCG/ML VIAL IM SCH (09:13)
[2019-10-23] MEDS: SODIUM CHLORIDE 0.45% 1,000 ML IV SCH ×2 (09:20→21:35)
--- NOTE | 2019-10-23 11:15 | NUR ---
PATIENT AMBULATING IN HALLWAY WITH PHYSICAL THERAPY, NO DISTRESS NOTED. WILL CONTINUE TO MONITOR.
[2019-10-23 12:13] VITALS: BP 143/69
--- NOTE | 2019-10-23 15:10 | NUR ---
PATIENT ASSISTED WITH SHOWER, BACK IN BED WITH CALL LIGHT AT REACH.
[2019-10-23] MEDS ORDERED: METOPROLOL SUCCINATE 25 MG TAB XL PO SCH (16:00)
--- NOTE | 2019-10-23 16:00 | NUR ---
Nutrition Intervention Note RD Recommendation(s) for Physician: -Recommend cardiac diet -Ensure Enlive BID for added nutrition Plan of Care: RD following, monitoring for tolerance and adequacy. ONS when diet is advanced. Nutrition reason for involvement: follow up RD Assessment 10/22: Follow up. Pt reports a good appetite and has been eating all of his meals. No N/V or chewing/swallowing issues. Pt is tolerating diet. Pt stated he used to weigh 186 lbs in 2016. Recommend Ensure Enlive BID for added nutrition. Pt did not have any questions at time of visit. Will continue to monitor. 10/18: 78 YOM admitted for absence epileptic syndrome. Pt was seen resting in the ICU, pt was not in the mood to speak at this time. Per nurse, the pt is not altered he is just in a bad mood. Received consult for possible protein calorie malnutrition. Pt was here in Jul 2019 where he was 143 lbs suggesting no recent weight loss in the past 2 months. Pt had mild nutrition focused physical findings of malnutrition. Recommend ONS when pt is no longer NPO to help meet his energy and protein needs. Will continue to monitor. Principal Problems/Diagnoses: epileptic syndrome, gastrointestinal hemorrhage PMH: hypertension, hyperlipidemia, pacemaker placement, PE GI: last recorded BM 10/21 Skin: no pressure ulcer recorded Labs: 10/21: K 3.3, Ca 7.7 10/18: Na 146, Cl 124, CO2 16, BUN 92, Ca 7.8, AST 67, ALT 108 Meds: antibiotic, vitamin B12, lasix Ht: 73 in Wt: 143 lb BMI: 18.9kg/m^2 IBW: 184 lbs Malnutrition Evaluation (10/22) The patient does not meet criteria for a specified degree of malnutrition at this time. Will re-evaluate at follow-up as appropriate. Energy intake: -adequate PO intake reported Weight loss: -no recent weight loss recorded Fat loss: Mild fat loss located around eyes Muscle loss: Mild, muscle loss around the temples Nutrition Prescription (Diet Order): GI soft diet Estimated Nutritional Needs: Calories: 4206-4500 kcal/day (30-35 kcal/kg/day) Weight used : CBW Protein : 65-130 protein/day (1-2 gram/kg/day ) Weight used: CBW Diet Adequacy: -meeting calorie needs, meeting protein needs Diet Education Needs Assessment: RD is available for diet education as needed Nutrition Care Level: moderate Nutrition Diagnosis: Inadequate energy intake related to medical condition as evidenced by the pt being NPO. (RESOLVED) Goal: Patient will meet 75-100% of estimated needs by follow up Progress: progressing Interventions: -mineral (Sodium), fat, cholesterol -modified diet, Commercial beverage Monitoring/Evaluation: -Total energy intake, Total protein intake, Modified diet, liquid supplement Signed: Sharyn Craven RD, DILIP
[2019-10-23 16:11] VITALS: BP 149/69
--- NOTE | 2019-10-23 19:13 | Progress Note ---
DATE: 10/23/2019 Cardiology Progress Note SUBJECTIVE: No complaints today. Denies any bleeding, chest pain or shortness of breath. OBJECTIVE: VITAL SIGNS: Temperature 97 degrees, heart rate 75, blood pressure 159/74, respiratory rate 18, O2 saturation 96%. GENERAL: No acute distress, alert. NECK: No JVD. CHEST: Clear to auscultation. CARDIOVASCULAR: Regular rate and rhythm. Normal S1, S2. ABDOMEN: Soft. Bowel sounds positive. EXTREMITIES: No edema. CARDIOVASCULAR MEDICATIONS: Reviewed. Furosemide. STUDIES: Sodium 141, potassium 3.3, chloride 115, bicarbonate 21, BUN 15, creatinine 0.7, glucose 113. White blood cells 12.2, hemoglobin 9, platelets 157,000. INR 1.18. AST 58, ALT 86. ASSESSMENT AND PLAN: A 78-year-old man presents with acute GI bleed with acute life-threatening GI bleed, hemorrhagic shock and acute blood loss anemia. Continue PPI, initiate low-dose beta-gely and gradually titrate up for hypertension management, seems euvolemic on exam with stable H and H, reports no recurrent bleeding. Hold off on anticoagulation for now, at a later date once okay to resume elective procedures can consider possibility of SAY-guided assessment for Watchman candidacy and coordination at that point with GI and whether or not to proceed with short-term anticoagulation and Watchman. For now no anticoagulation please. Sedrick Raines MD AFV/MODL /[id number]
[2019-10-23 20:00] VITALS: BP 147/79
[2019-10-23 20:22] VITALS: BP 147/79
[2019-10-24] VITALS (8 sets, daily range): BP systolic 130–166; BP diastolic 65–88
[2019-10-24] MEDS: PANTOPRAZOL 40MG/SOD CHL 0.9% 50 ML IV SCH ×4 (04:07→20:58)
[2019-10-24] MEDS: CEFEPIME 1GM/NS 0.9% 50 ML 50 ML IV SCH ×3 (05:10→20:58)
[2019-10-24] MEDS: METRONIDAZOLE 500MG/NS 100ML 100 ML IV SCH ×4 (06:03→23:54)
[2019-10-24 06:19] LABS: BASOPHILS % 0.2 % (0.0-1.0); EOSINOPHILS # (AUTO) 0.2 (0.0-0.4); EOSINOPHILS % 1.7 % (0.0-6.0); HEMATOCRIT 27.7 % (38.2-49.6); HEMOGLOBIN 9.2 g/dL (14.0-18.0); LYMPHOCYTES # (AUTO) 1.2 (1.0-3.2); LYMPHOCYTES % 10.1 % (18.0-39.1); MEAN CORPUSCULAR HEMOGLOBIN 29.8 pg (28-32); MEAN CORPUSCULAR HGB CONC 33.2 g/dL (31-35); MEAN CORPUSCULAR VOLUME 89.6 fL (81-99); MONOCYTES # (AUTO) 0.9 (0.2-0.8); MONOCYTES % 7.4 % (4.4-11.3); NEUTROPHILS # (AUTO) 9.4 (2.1-6.9); NEUTROPHILS % 78.9 % (38.7-80.0); PLATELET COUNT 192 x10e3/uL (140-360); RED BLOOD COUNT 3.09 x10e6/uL (4.3-5.7); RED CELL DISTRIBUTION WIDTH 18.6 % (11.7-14.4)
[2019-10-24 06:45] LABS: ALANINE AMINOTRANSFERASE 45 IU/L (0-55); ALBUMIN 2.8 g/dL (3.5-5.0); ALBUMIN/GLOBULIN RATIO 1.6 (0.8-2.0); ALKALINE PHOSPHATASE 63 IU/L (40-150); ANION GAP 7.5 mmol/L (8-16); BLOOD UREA NITROGEN 10 mg/dL (7-26); BUN/CREATININE RATIO 14 (6-25); CARBON DIOXIDE 24 mmol/L (22-29); CHLORIDE 112 mmol/L (98-107); CREATININE, SERUM 0.69 mg/dL (0.72-1.25); EST GLOMERULAR FILTRATION RATE > 60 ML/MIN (60-); GLUCOSE 121 mg/dL (74-118); MAGNESIUM 2.1 MG/DL (1.3-2.1); POTASSIUM 3.5 mmol/L (3.5-5.1); SODIUM 140 mmol/L (136-145)
--- NOTE | 2019-10-24 06:45 | NUR ---
patient is resting comfortably in the bed. bed is in lowest position and call light is within reach. no complaints of pain or discomfort noted.
--- NOTE | 2019-10-24 07:20 | NUR ---
PATIENT OUT OF BED TO CHAIR WATCHING TV, NO COMPLAIN VOICED. OLSON CATHETER DRAINING CLEAR YELLOW URINE. CALL LIGHT AT REACH.
[2019-10-24] MEDS: CYANOCOBALAMIN INJ 1,000 MCG/ML VIAL IM SCH (09:08)
[2019-10-24] MEDS: METOPROLOL SUCCINATE 25 MG TAB XL PO SCH (09:08)
--- NOTE | 2019-10-24 11:29 | NUR ---
PATIENT ASSISTED TO THE RESTROOM AND BACK TO BED. CALL LIGHT AT REACH.
--- NOTE | 2019-10-24 14:21 | Progress Note ---
DATE: SUBJECTIVE: The patient is less agitated and less confused, although he still seems somewhat forgetful. He is not having fever. He does not complain of pain. There is no visible hematochezia or melena. PHYSICAL EXAMINATION: VITAL SIGNS: The blood pressure is 143/65 and the saturation is 99%. HEENT: Shows no facial swelling or erythema. CARDIAC: Reveals regular rate and rhythm with normal S1, S2. LUNGS: Auscultation of lungs reveals clear breath sounds bilaterally. There is no wheezing. ABDOMEN: Soft, nontender. There is no rebound or guarding. EXTREMITIES: Show no leg edema or calf tenderness. There is no cyanosis or clubbing. SKIN: Shows no rashes. LABORATORY DATA: Hemoglobin is 9.2, white blood cell count of 11.9. The platelet count is 192. BUN to creatinine ratio is normal. The other electrolytes are within normal limits. IMPRESSION: 1. Anemia, secondary to acute blood loss. 2. Lower gastrointestinal bleeding with colitis in the transverse colon. 3. Hydrocephalus. 4. Atrial fibrillation. 5. Pulmonary nodule. PLAN: 1. Continue current cardiac regimen. 2. Monitor blood counts. 3. Repeat CT scan as an outpatient. Scottie Branham MD LM/SAGE /[id number]
[2019-10-24] MEDS: SODIUM CHLORIDE 0.45% 1,000 ML IV SCH (14:37)
--- NOTE | 2019-10-24 15:46 | NUR ---
PATIENT AMBULATED IN HALLWAY WITH PHYSICAL THERAPY, BACK TO BED WITH CALL LIGHT AT REACH.
[2019-10-24] MEDS ORDERED: CYCLOBENZAPRINE HCL 10 MG TAB PO PRN (18:00)
--- NOTE | 2019-10-24 19:30 | NUR ---
RECEIVED REPORT FROM DAY NURSE. PATIENT IS RESTING COMFORTABLY IN THE BED. BED IS IN LOWEST POSITION AND CALL LIGHT IS WITHIN REACH. WILL CONTINUE TO MONITOR PATIENT.
--- NOTE | 2019-10-24 21:22 | Progress Note ---
DATE: 10/24/2019 Cardiology Progress Note SUBJECTIVE: Sylvain denies any chest pain or shortness of breath. He is having muscle cramps to lower extremities, which are chronic, intermittent. The patient report that he is quite uncomfortable. OBJECTIVE: VITAL SIGNS: Temperature 98.3, heart rate 79, blood pressure 143/65, respiratory rate 18, and O2 saturation 99%. GENERAL: In no acute distress, alert. NECK: No JVD. CHEST: Clear to auscultation. CARDIOVASCULAR: Regular rate and rhythm. Normal S1 and S2. No S3 or S4. ABDOMEN: Soft. Bowel sounds positive. EXTREMITIES: No edema. CARDIOVASCULAR MEDICATIONS: Reviewed. Metoprolol succinate 25 mg daily and furosemide 20 mg p.r.n. posttransfusion. LABORATORY DATA: His studies reviewed, creatinine 0.6, hemoglobin 9.2, and platelets 142. INR 1.1. ASSESSMENT AND PLAN: 1. 78-year-old man with acute life-threatening GI bleed and acute blood loss anemia, hypertension, normal-pressure hydrocephalus, paroxysmal atrial fibrillation, sick sinus syndrome status post pacemaker for AV block recommend. Continue metoprolol. Blood pressure today seems better controlled. 2. Add muscle relaxant p.r.n. 3. Hold off on anticoagulants given life-threatening recent GI bleed. MD GELY Landrum/SAGE /[id number]
[2019-10-25] VITALS (7 sets, daily range): BP systolic 131–171; BP diastolic 61–79
[2019-10-25] MEDS: SODIUM CHLORIDE 0.45% 1,000 ML IV SCH ×2 (01:20→21:59)
[2019-10-25] MEDS: PANTOPRAZOL 40MG/SOD CHL 0.9% 50 ML IV SCH ×6 (02:39→23:30)
[2019-10-25] MEDS: CEFEPIME 1GM/NS 0.9% 50 ML 50 ML IV SCH ×3 (05:25→21:59)
[2019-10-25] MEDS: METRONIDAZOLE 500MG/NS 100ML 100 ML IV SCH ×3 (07:05→18:15)
--- NOTE | 2019-10-25 07:18 | NUR ---
PATIENT IN BED RESTING WITH NO S/S OF DISCOMFORT. OLSON CATHETER WITH CLEAR YELLOW URINE. BED IN LOWER POSITION, CALL LIGHT AT REACH.
[2019-10-25] MEDS: CYANOCOBALAMIN INJ 1,000 MCG/ML VIAL IM SCH (09:11)
[2019-10-25] MEDS: METOPROLOL SUCCINATE 25 MG TAB XL PO SCH (09:12)
--- NOTE | 2019-10-25 11:30 | NUR ---
PATIENT OUT OF BED TO CHAIR WATCHING TV. CALL LIGHT AT REACH.
--- NOTE | 2019-10-25 15:32 | NUR ---
MD IN TO SEE PATIENT, NO NEW ORDER RECEIVED.
[2019-10-25] MEDS ORDERED: SODIUM CHLORIDE 0.9% 100 ML ONE (21:24)
--- NOTE | 2019-10-25 23:31 | Progress Note ---
DATE: 10/25/2019 Cardiology Progress Note SUBJECTIVE: No complaints. OBJECTIVE: VITAL SIGNS: Temperature 99 degrees, heart rate 78, blood pressure 155/72, respiratory rate 18, O2 saturation 96%. GENERAL: No acute distress. Alert. NECK: No JVD. CHEST: Clear to auscultation. CARDIOVASCULAR: Regular rate and rhythm. Normal S1 and S2. No S3 or S4. ABDOMEN: Soft. Bowel sounds positive. EXTREMITIES: No edema. CARDIOVASCULAR MEDICATIONS: Reviewed. Metoprolol succinate 25 mg daily, furosemide 20 mg p.r.n. posttransfusion, p.r.n. hydralazine. STUDIES: Reviewed. Sodium 140, potassium 3.5, creatinine 0.8, glucose 121. White blood cells 11.9, hemoglobin 9.2, and platelets 192. INR 1.18, PTT 24, PT 15. ASSESSMENT: A 78-year-old man with major gastrointestinal bleed and acute blood loss anemia requiring significant PRBC transfusions. He had a hemorrhagic shock, now resolved with stabilized H and H. No recurrent bleeding, status post endoscopic evaluation significant for ulcers in gastric, duodenum, and ulcerated parts of colon, status post colon biopsies. RECOMMENDATION: Continue to hold anticoagulation. Unfortunately at this point, thromboembolic risk prevention with anticoagulation is not advisable given life-threatening GI bleed the patient had. At a later date, consider further reassessment once repeat GI evaluation in 3 months completed. At that point in time, consideration Watchman candidacy and a short-term anticoagulation can be discussed further. Continue metoprolol upon discharge. Okay to discharge from a cardiovascular standpoint with outpatient followup within the following 2-4 weeks. MD GELY Landrum/SAGE /[id number]
[2019-10-26] VITALS (8 sets, daily range): BP systolic 124–167; BP diastolic 59–76
--- NOTE | 2019-10-26 00:13 | NUR ---
patients right upper and right lower arm is swollen. patient also has scrotal swelling. MD paged awaiting call back from .
--- NOTE | 2019-10-26 01:12 | NUR ---
RECEIVED REPORT FROM 7PM NURSE, PATIENT ASLEEP, RIGHT ARM SWOLLEN, ELEVATED ON A PILLOW. CALL LIGHT IN REACH. WILL CONTINUE TO MONITOR.
[2019-10-26] MEDS: SODIUM CHLORIDE 0.45% 1,000 ML IV SCH ×2 (04:00→17:16)
[2019-10-26] MEDS: METRONIDAZOLE 500MG/NS 100ML 100 ML IV SCH ×4 (06:02→17:16)
[2019-10-26] MEDS: CEFEPIME 1GM/NS 0.9% 50 ML 50 ML IV SCH ×3 (06:02→23:30)
[2019-10-26] MEDS: PANTOPRAZOL 40MG/SOD CHL 0.9% 50 ML IV SCH ×4 (06:03→20:03)
--- NOTE | 2019-10-26 07:08 | NUR ---
REPORT GIVEN TO AM NURSE, PATIENT RESTING IN BED WITH HOB ELEVATED, CALL LIGHT REMAIN IN REACH. WILL CONTINUE TO MONITOR.
--- NOTE | 2019-10-26 07:29 | Progress Note ---
DATE: SUBJECTIVE: The patient is a 78-year-old gentleman with a history of GI bleed, found to have colonic problems with transverse colon colitis. Biopsies are still pending. The patient is feeling better; however, right upper extremity where the PICC line was placed, the patient has a large growth in his forearm and his arm. DVT study will be done for this. Eating well. No chest pains. No shortness of breath and his vitals are stable. PHYSICAL EXAMINATION: VITAL SIGNS: Temperature is 97.1, T-max of 99.1 yesterday at 2215, blood pressure is 162/74, respirations of 18, pulse of 89. HEENT: Normocephalic, atraumatic. Pupils are reactive. CVS: S1 and S2 are normal. Regular rate and rhythm. ABDOMEN: Nontender, nondistended. EXTREMITIES: Right upper extremity with swelling, otherwise no edema. LABORATORY VALUES: White count was down on 10/23 at 11.91. Chemistries; sodium 140, potassium of 3.5, BUN and creatinine were within normal limits. ASSESSMENT: Mr. Sylvain Dumas with: 1. Acute gastrointestinal bleeding. 2. Acute blood loss anemia, status post PRBC transfusion. 3. Ulcer of transverse colon. 4. History of atrial fibrillation. PLAN: 1. Continue to hold anticoagulation. 2. A DVT study of the right upper extremity. 3. He will need physical therapy because of generalized debility. 4. Protein-energy malnutrition. 5. Debility, needs physical therapy and SNF consult has been ordered, can be transferred pending Doppler study of the right upper extremity. Anyway, the patient can be anticoagulated because of GI bleeding and also right upper extremity DVTs, not life-threatening. MD NORM KoJ/MODL /[id number]
[2019-10-26] MEDS: METOPROLOL SUCCINATE 25 MG TAB XL PO SCH (08:33)
--- NOTE | 2019-10-26 10:11 | NUR ---
SPOKE WITH PT ABOUT SNF ORDER, OFFERED CHOICES IN HIS LOCATION APPROXIMATE TO HIS HOME. SIGNED CHOICE FOR FOCUSED CARE OF [facility]. FILED IN CHART AND ASKED COORDINATOR TO MAKE PACKET. COMPLETED PASRR, AND RTF. NEED SIGNATURE ON COVID ASSESSMENT FORM PLACED ON CHART FOR SIGNATURE.
--- NOTE | 2019-10-26 14:28 | NUR ---
blood clot present in extremity with PICC line. dr. ríos notified- dr. antoine paged to inform him as well. waiting for response at this time. Per Danial JOEL & daxa Curry to remove PICC line.
--- NOTE | 2019-10-26 15:08 | NUR ---
Right PICC removed. Tip intact. dressing applied.
--- NOTE | 2019-10-26 18:13 | Progress Note ---
DATE: 10/26/2019 Cardiology Progress Note SUBJECTIVE: Upper extremity edema noted to have PICC associated DVT, now status post PICC removal. Denies chest pain or shortness of breath and has otherwise no new complaints. OBJECTIVE: VITAL SIGNS: Temperature 96.5, heart rate 84, blood pressure 145/65, respiratory rate 18, O2 saturation 95% on room air. GENERAL: No acute distress. NECK: No JVD. CHEST: Clear to auscultation. CARDIOVASCULAR: Regular rate and rhythm. Normal S1 and S2. ABDOMEN: Soft. Bowel sounds positive. Lower extremities without edema. CARDIOVASCULAR MEDICATIONS: Reviewed. Potassium 3.5, creatinine 0.6, hemoglobin 9.2, platelets of 192. INR 1.1. ASSESSMENT: 1. A 78-year-old man presents with life-threatening gastrointestinal bleeding, hemorrhagic shock, now resolved. Anemia of acute blood loss, now stable and gastrointestinal bleed with noted ulcers to stomach, duodenum and ulcerations in the colon status post colon biopsy to be followed by GI. 2. Paroxysmal atrial fibrillation, sick sinus syndrome. 3. Pacemaker for atrioventricular block. 4. History of normal-pressure hydrocephalus and cerebrovascular disease. 5. Hypertension. 6. Upper extremity deep vein thrombosis, PICC line associated. RECOMMENDATIONS: 1. PICC line discontinued. 2. Currently not a candidate for anticoagulation. Consider warm compresses to upper extremity. 3. Continue current cardiovascular medications. 4. Outpatient followup advised in 2 weeks. MD GELY Landrum/SAGE /[id number]
--- NOTE | 2019-10-26 19:00 | NUR ---
RECEIVED PATIENT IN BEDSIDE SHIFT REPORT. PATIENT RESTING IN BED AT THIS TIME. A&OX3. NO PAIN REPORTED. NO S&S OF DISTRESS NOTED. OLSON DRAINING CLEAR, YELLOW URINE TO GRAVITY, OFF OF FLOOR. BED ALARM ACTIVE, BED LOCKED IN LOWEST POSITION, SIDE RAILS UPX2, CALL LIGHT IN REACH.
[2019-10-27] VITALS: BP 146/71
[2019-10-27] MEDS: PANTOPRAZOL 40MG/SOD CHL 0.9% 50 ML IV SCH ×3 (01:00→10:55)
[2019-10-27] MEDS: METRONIDAZOLE 500MG/NS 100ML 100 ML IV SCH ×3 (01:00→11:00)
[2019-10-27 05:00] VITALS: BP 139/75
[2019-10-27] MEDS: CEFEPIME 1GM/NS 0.9% 50 ML 50 ML IV SCH ×2 (05:30→13:34)
--- NOTE | 2019-10-27 06:44 | NUR ---
Received bedside shift report from off going nurse. Patient is resting in bed, no s/s of distress noted. Call light within reach. Bed in the lowest position. Bed alarm on.
--- NOTE | 2019-10-27 07:12 | NUR ---
REPORT GIVEN TO ONCOMING NURSE. AAOX3. R UPPER ARM PICC LINE WITH NO SIGNS OF INFILTRATION. BED LOCKED AND IN LOW POSITION. RESTING IN FOWLERS POSITION. BED ALARM ON, CALL LIGHT WITHIN REACH. Addendum: 10/27/19 at 0715 by Di Lagos RN NO PICC LINE IN PLACE. L FA 20G WITH NO SIGNS OF INFILTRATION.
[2019-10-27 07:33] VITALS: BP 164/75
--- NOTE | 2019-10-27 07:50 | Progress Note ---
DATE: SUBJECTIVE: This is a 78-year-old male with a history of anticoagulation with history of acute blood loss anemia on anticoagulation. Anticoagulation was stopped. The patient was given 7 units of PRBCs. Currently stable. Colitis was noticed on colonoscopy. Biopsies taken and also upper GI bleed was also noted with no bleeding stigmata of duodenal ulcers. The patient developed right upper extremity clot. At this time, I did confer with Dr. Cole, not a candidate for anticoagulation and also very low risk for upper extremity DVT and stroke. Plan, disposition today will be to discharge the patient home. OBJECTIVE: VITAL SIGNS: Temperature is 96.7, blood pressure is 139/75, pulse oximetry of 93%. HEENT: Normocephalic and atraumatic. Pupils are reactive to light and accommodation. CVS: S1 and S2 regular. ABDOMEN: Nontender, nondistended. EXTREMITIES: No clubbing, no cyanosis, no edema. LABORATORY VALUES: The patient's chemistries, the last was within normal limits. BUN of 10, creatinine of 0.69. White count is normal, and hemoglobin and hematocrit the last recheck was 9.2 and 27.7 and uptake. ASSESSMENT: Mr. Sylvain Dumas with: 1. Gastrointestinal bleeding on anticoagulation, acute blood loss anemia, stable. 2. Paroxysmal atrial fibrillation. We will stop anticoagulation. We will hold off on anticoagulation in lieu of his life-threatening bleed. 3. Pacemaker placement. 4. Upper extremity deep venous thrombosis, not car, not a candidate for anticoagulation at this time, he is for local care. The patient can be discharged to a SNF. Continue with current cardiovascular medication. Further recommendation per clinical course. We will continue to monitor the patient and will be seen as an outpatient in 2 weeks, but in the meantime, we will monitor the patient in the SNF facility. MD NORM KoJ/MODL /[id number]
[2019-10-27] MEDS: METOPROLOL SUCCINATE 25 MG TAB XL PO SCH (08:13)
[2019-10-27 08:20] VITALS: BP 164/75
--- NOTE | 2019-10-27 08:39 | NUR ---
OBTAINED COVID ASSESSMENT, COPIED AND PUT WITH PACKET FOR FOCUSED CARE [facility] AND WAS ABLE TO FAX FOR REVIEW.
--- NOTE | 2019-10-27 09:11 | NUR ---
Al, PA in to see patient. Per PA, patient to go to SNF with IV abts for 7 more days.
--- NOTE | 2019-10-27 09:15 | NUR ---
Discontinued louis catheter at this time with tip intact. Patient DTV at 1715.
--- NOTE | 2019-10-27 10:05 | NUR ---
CUSTODIAL FACILITY DISCHARGE INFORMATION PATIENT HAS BEEN ACCEPTED TO: NAME: MAGEN MCMILLAN ADDRESS:[address] [place] [address] TANIKA ACCEPTING DETONATOR MAKER: MARITA SMALL ACCEPTING MD: TODD ROOM:[id number] NURSE CALL REPORT TO: [phone] IMM SIGNED AND OBTAINED (if applicable): YES THE FOLLOWING DOCUMENTS MUST ACCOMPANY PATIENT FOR TRANSFER: COPIED CHART: PACKET
--- NOTE | 2019-10-27 10:32 | NUR ---
Patient refusing to be turned at this time.
[2019-10-27 11:13] VITALS: BP 137/64
--- NOTE | 2019-10-27 13:03 | NUR ---
Bladder scanned patient and noted [address] Escamilla, per put louis back in and send him with it to SNF.
--- NOTE | 2019-10-27 13:15 | NUR ---
Inserted new [place] catheter, 500cc of clear yellow urine noted.
--- NOTE | 2019-10-27 13:28 | NUR ---
Called report to JOSE ELIAS Sánchez at [facility] at this time.
--- NOTE | 2019-10-27 14:56 | Progress Note ---
DATE: SUBJECTIVE: The patient has had no further bleeding. He is on antibiotics. He is awaiting transfer back to senior living. PHYSICAL EXAMINATION: VITAL SIGNS: The patient is afebrile. The blood pressure is 137/64 and saturation is 96%. HEENT: Shows no facial swelling or erythema. CARDIAC: Reveals regular rate and rhythm with normal S1 and S2. RESPIRATORY: Auscultation of lungs reveal clear breath sounds bilaterally. There is no wheezing. ABDOMEN: Soft and nontender. There is no rebound or guarding. EXTREMITIES: Show no leg edema or calf tenderness. There is no cyanosis or clubbing. IMPRESSION: 1. Acute on chronic blood loss leading to anemia. 2. Deep vein thrombosis of the upper extremity. 3. Colitis. 4. Organic brain syndrome. 5. Paroxysmal atrial fibrillation. 6. Acute on chronic systolic congestive heart failure. PLAN: 1. The patient will go to SNF. 2. Complete antibiotics. 3. Continue current cardiac regimen. MD DAVID Rosa/SAGE /[id number]
--- NOTE | 2019-10-27 15:11 | NUR ---
Patient is in stable condition, taken via stretcher by EMS. All transfer paperwork and personal items given to EMS personnel. IV line to left forearm in place, patent, saline flushed. Patient is to receive IV antibiotics at SNF.
== END 2019-10-27 15:11 | DRG 377 ==
LOC: ER 22:08 → ERHOLD 10-17 01:27 → ICU 10-17 02:05 → MED/SURG3 10-19 18:00
PROVIDERS: ADMIT Family Medicine; ATTEND Family Medicine
PROC: 02HV33Z Insertion of Infusion Device into Superior Vena Cava, Percutaneous Approach (ICD-10-PCS; 2019-10-17)
PROC: B548ZZA Ultrasonography of Superior Vena Cava, Guidance (ICD-10-PCS; 2019-10-17)
PROC: 3E043XZ Introduction of Vasopressor into Central Vein, Percutaneous Approach (ICD-10-PCS; 2019-10-17)
PROC: 30243N1 Transfusion of Nonautologous Red Blood Cells into Central Vein, Percutaneous Approach (ICD-10-PCS; 2019-10-17)
PROC: 0DB68ZX Excision of Stomach, Via Natural or Artificial Opening Endoscopic, Diagnostic (ICD-10-PCS; principal; 2019-10-20 07:30)
PROC: 0DBL8ZX Excision of Transverse Colon, Via Natural or Artificial Opening Endoscopic, Diagnostic (ICD-10-PCS; 2019-10-22)
DX: K29.71 Gastritis, unspecified, with bleeding (principal); R57.1 Hypovolemic shock; G92 Toxic encephalopathy; R57.8 Other shock; I50.23 Acute on chronic systolic (congestive) heart failure; K63.3 Ulcer of intestine; D62 Acute posthemorrhagic anemia; E44.0 Moderate protein-calorie malnutrition; E87.2 Acidosis; G91.2 (Idiopathic) normal pressure hydrocephalus; E46 Unspecified protein-calorie malnutrition; I82.621 Acute embolism and thrombosis of deep veins of right upper extremity; K20.9 Esophagitis, unspecified; K25.9 Gastric ulcer, unspecified as acute or chronic, without hemorrhage or perforation; K57.30 Diverticulosis of large intestine without perforation or abscess without bleeding; E78.5 Hyperlipidemia, unspecified; Z95.810 Presence of automatic (implantable) cardiac defibrillator; Z82.49 Family history of ischemic heart disease and other diseases of the circulatory system; R56.9 Unspecified convulsions; Z86.73 Personal history of transient ischemic attack (TIA), and cerebral infarction without residual deficits; J44.9 Chronic obstructive pulmonary disease, unspecified; F10.10 Alcohol abuse, uncomplicated; Z86.711 Personal history of pulmonary embolism; E11.9 Type 2 diabetes mellitus without complications; Z79.01 Long term (current) use of anticoagulants; I48.0 Paroxysmal atrial fibrillation; Z87.891 Personal history of nicotine dependence; R45.1 Restlessness and agitation; D72.828 Other elevated white blood cell count; R91.1 Solitary pulmonary nodule; K52.9 Noninfective gastroenteritis and colitis, unspecified; D69.6 Thrombocytopenia, unspecified; K31.9 Disease of stomach and duodenum, unspecified; E53.8 Deficiency of other specified B group vitamins; R53.81 Other malaise; I11.0 Hypertensive heart disease with heart failure; Z79.82 Long term (current) use of aspirin
CPT/HCPCS: 36415; 36569; 43239; 45380; 70450; 71045; 74177; 80048; 80053; 80307; 81001; 82270; 82533; 82550; 82553; 82607; 82728; 82746; 82948; 83540; 83615; 83735; 84132; 84449; 84466; 84484; 85014; 85018; 85025; 85045; 85610; 85730; 86850; 86900; 86920; 87040; 88305; 88312; 93005; 93306; 93880; 93971; 97139; 99284; C1751; J0692; J1720; J1940; J2001; J2060; J2250; J3370; J3420; J3430; J3486; J7030; J7050; P9016; Q9967